=== PATIENT | female | born 1965 | race Caucasian/White ===

== ENCOUNTER 2022-03-26 18:38 | Inpatient (IN) | payer OTHER ==
--- OUTSIDE RECORDS SUMMARY | 2022-03-26 18:44 | XMS REPORT | Continuity of Care Document ---
:1965 Author Organization [facility] Address [address] [place] [address] [address] [place] [address] Care Team Providers Name Role Phone TANIA MA Primary Care Physician Unavailable Tania Ma Attending Clinician Unavailable DENNIS KYLE Attending Clinician Unavailable Doctor Unassigned, Kulm Attending Clinician Unavailable HUNG GARCIA Attending Clinician Unavailable Hung Mcclain Attending Clinician Kayce Chakraborty LVN Attending Clinician Boris Armstrong DO Attending Clinician Daniel Farias MD Attending Clinician DANIEL FARIAS Attending Clinician Unavailable Mindy Slater NP Attending Clinician Kane Alberto Attending Clinician GILLES ZAVALA Attending Clinician Unavailable HUNG GARCIA Admitting Clinician Unavailable Daniel Farias MD Admitting Clinician DANIEL FARIAS Admitting Clinician Unavailable GILLES ZAVALA Admitting Clinician Unavailable Payers Payer Name Policy Type Policy Number Effective Date Expiration Date S angel AMERIGROUP AKIN [id number] 2022 PLUS 00:00:00 AMERIGROUP [id number] Common (Medicaid) [facility] AMERIGROUP [id number] Common (Medicaid) [facility] Problems Condition Condition Condition Status Onset Resolution Last Treating Co mments Source Name Details Category Date Date Treatment Clinician Date Essential Essential Disease Active 2020-04 Uni vers hypertensi hypertensi 2- it y of on on 00:00: [place] 00 Medical Branch Tachycardi Tachycardi Disease Active 2020-04 U nivers a a 2- ity of 00:00: [place] 00 Medical Branch Elevated Elevated Disease Active 2020-04 Unive rs brain brain 2 ity of natri[place] c peptide c peptide 00 Medi mateo (BNP) (BNP) Branch level level Multifocal Multifocal Disease Active 2020-04 U nivers pneumonia pneumonia 2 ity of 00:00: [place] 00 [facility] Branch Respirator Respirator Disease Active 2019-04 U nivers y failure y failure 2-13 ity of with with 00:00: [place] hypoxia hypoxia 00 [facility] Branch Acute Acute Disease Active 2017-04 Univers respirator respirator 2 [place] failure [place] 00 [facility] [place] hypoxia Branch and and hypercapni hypercapni a a [id number] Mixed Problem Common hyperlipid Spirit emia [facility] [id number] COPD with Problem Co mmon [id number] asthma [facility] Hypertensi HTN Problem Commo n on (hypertens Spirit ion) - [facility] [id number] Asymptomat Problem Co mmon ic Spirit hypertensi - [facility] ve urgency [facility] [id number] Chronic Problem Common obstructiv Spirit e - [facility] pulmonary [facility] unspecifie Medica [facility] [place] [id number] COPD with Problem Com mon exacerbati Spirit on [facility] [id number] Current Problem Common moderate Spirit episode of - [facility] major [facility] Medical [facility] prior episode [id number] Dependence Problem C ommon 9103 on Spirit continuous - [facility] supplement [facility] [id number] Tobacco Problem Commo n use [facility] disorder [facility] Allergies, Adverse Reactions, Alerts Allergy Allergy Status Severity Reaction(s) Onset Inactive Treating Comm ents Source Name Type Date Date Clinician Morphine Propensi Active Nausea 2017-04 Univer s ty to and/or 05-20 ity of adverse Vomiting 00:00: [place] reaction 00 Medical s Branch MORPHINE DRUG Active Low N/V 2017-04 Univers INGREDI 05-20 ity of 00:00: [place] [id number] Medical Branch Social History Social Habit Start Date Stop Date Quantity Comments Source History of Common Spirit - Tobacco Use [facility] Sex Assigned At Common Sp catrachito - [facility] Exposure to Not sure University of SARS-CoV-2 [facility] (event) [place] Alcohol intake 2021-03-15 2021-03-15 Current drinker Unive rsity of 00:00:00 00:00:00 of alcohol [facility] (finding) [place] Tobacco use and 2020-03-22 2020-03-22 Smokeless tobacco Un iversity of exposure 00:00:00 00:00:00 non-user [facility] Smoking Status Start Date Stop Date Source Former Smoker 2022-03-02 00:00:00 2022-03-02 00:00:00 Common S pirit - [facility] Ce nter Smokes tobacco daily 2020-03-22 00:00:00 Univers ity of [facility] Medications Ordered Filled Start Stop Current Ordering Indication Dosage Frequency Signature Comments Components Source Medication Medication Date Date Medication? Clinician (SIG) Name Name predniSONE predniSONE 2021-04- No 2{table QD predniSONE 20 MG 20 MG 1-10 11-15 t} 20 MG 00:00: 00:00 00 :00 predniSONE predniSONE 2021-04- No 2{table QD predniSONE 20 MG 20 MG -10 11-15 t} 20 MG 00:00: 00:00 00 :00 Rosuvastati Rosuvastati 2021-04 No 1{table QD Rosuvastat n Calcium 5 n Calcium 5 0-24 t} in Calcium MG MG 00:00: 5 MG 00 Rosuvastati Rosuvastati 2021-04 No 1{table QD Rosuvastat n Calcium 5 n Calcium 5 0-24 t} in Calcium MG MG 00:00: 5 MG 00 Rosuvastati Rosuvastati 2021-04 No 1{table QD Rosuvastat n Calcium 5 n Calcium 5 0-24 t} in Calcium MG MG 00:00: 5 MG 00 Rosuvastati Rosuvastati 2021-04 No 1{table QD Rosuvastat n Calcium 5 n Calcium 5 0-24 t} in Calcium MG MG 00:00: 5 MG 00 Breo Breo 2021-2021- No 1{puff} QD Breo Ellipta Ellipta 8-23 12-21 Ellipta 200-25 200-25 00:00: 00:00 200-25 MCG/INH MCG/INH 00 :00 MCG/INH Breo Breo 2021-2021- No 1{puff} QD Breo Ellipta Ellipta 8-23 12-21 Ellipta 200-25 200-25 00:00: 00:00 200-25 MCG/INH MCG/INH 00 :00 MCG/INH Breo Breo 2021- No 1{puff} QD Breo Ellipta Ellipta 8-23 12-21 Ellipta 200-25 200-25 00:00: 00:00 200-25 MCG/INH MCG/INH 00 :00 MCG/INH Breo Breo 2021- No 1{puff} QD Breo Ellipta Ellipta 8-23 12-21 Ellipta 200-25 200-25 00:00: 00:00 200-25 MCG/INH MCG/INH 00 :00 MCG/INH Breo Breo 2021-2021- No 1{puff} QD Breo Ellipta Ellipta 8-23 12-21 Ellipta 200-25 200-25 00:00: 00:00 200-25 MCG/INH MCG/INH 00 :00 MCG/INH Breo Breo 2021-2021- No 1{puff} QD Breo Ellipta Ellipta 8-23 12-21 Ellipta 200-25 200-25 00:00: 00:00 200-25 MCG/INH MCG/INH 00 :00 MCG/INH Atorvastati Atorvastati No 1{table QD Atorvastat n Calcium n Calcium 8-22 t} in Calcium 20 MG 20 MG 00:00: 20 MG 00 Budesonide Budesonide No 2{ml} QD Budesonide 0.5 MG/2ML 0.5 MG/2ML 8-22 0.5 MG/2ML 00:00: 00 Budesonide Budesonide 2022-0 No 2{ml} QD Budesonide 0.5 MG/2ML 0.5 MG/2ML 8-22 0.5 MG/2ML 00:00: 00 Atorvastati Atorvastati 2021-0 No 1{table QD Atorvastat n Calcium n Calcium 8-22 t} in Calcium 20 MG 20 MG 00:00: 20 MG 00 Budesonide Budesonide 2021-0 No 2{ml} QD Budesonide 0.5 MG/2ML 0.5 MG/2ML 8-22 0.5 MG/2ML 00:00: 00 Atorvastati Atorvastati 2021-0 No 1{table QD Atorvastat n Calcium n Calcium 8-22 t} in Calcium 20 MG 20 MG 00:00: 20 MG 00 Budesonide Budesonide 0 No 2{ml} QD Budesonide 0.5 MG/2ML 0.5 MG/2ML 8-22 0.5 MG/2ML 00:00: 00 Atorvastati Atorvastati 2021-0 No 1{table QD Atorvastat n Calcium n Calcium 8-22 t} in Calcium 20 MG 20 MG 00:00: 20 MG 00 Budesonide Budesonide 0 No 2{ml} QD Budesonide 0.5 MG/2ML 0.5 MG/2ML 8-22 0.5 MG/2ML 00:00: 00 Atorvastati Atorvastati 2021-0 No 1{table QD Atorvastat n Calcium n Calcium 8-22 t} in Calcium 20 MG 20 MG 00:00: 20 MG 00 Atorvastati Atorvastati 2021-0 No 1{table QD Atorvastat n Calcium n Calcium 8-22 t} in Calcium 20 MG 20 MG 00:00: 20 MG 00 Budesonide Budesonide 2021-0 No 2{ml} QD Budesonide 0.5 MG/2ML 0.5 MG/2ML 8-22 0.5 MG/2ML 00:00: 00 Atorvastati Atorvastati 2021-0 No 1{table QD Atorvastat n Calcium n Calcium 8-22 t} in Calcium 20 MG 20 MG 00:00: 20 MG 00 Budesonide Budesonide 2021-0 No 2{ml} QD Budesonide 0.5 MG/2ML 0.5 MG/2ML 8-22 0.5 MG/2ML 00:00: 00 predniSONE predniSONE 2021- No QD predniSONE 20 MG 20 MG 4-15 04-20 20 MG 00:00: 00:00 00 :00 dilTIAZem dilTIAZem No QD dilTIAZem HCl 120 MG HCl 120 MG 1-05 HCl 120 MG 00:00: 00 dilTIAZem dilTIAZem No QD dilTIAZem HCl 120 MG HCl 120 MG 1-05 HCl 120 MG 00:00: 00 diltiazem 2020-04 No [id number] 120mg Take 1 Univers XR 120 mg 05-17 capsule by ity of 24 hr 00:00: 05:59 mouth [place] capsule 00 :00 daily for Medical 30 days. Branch nicotine 2020-04 No [id number] 1{patch Apply 1 Univers mg/24 hr 05-17 } Patch to ity of patch 00:00: 05:59 area(s) [place] 00 :00 every 24 Medical (twenty-fo Branch ur) hours for 30 days. diltiazem 2020-04 No [id number] 120mg Take 1 Univers XR 120 mg 05-17 capsule by ity of 24 hr 00:00: 05:59 mouth [place] capsule 00 :00 daily for Medical 30 days. Branch nicotine 2020-04 No [id number] 1{patch Apply 1 Univers mg/24 hr 05-17 } Patch to ity of patch 00:00: 05:59 area(s) [place] 00 :00 every 24 Medical (twenty-fo Branch ur) hours for 30 days. predniSONE 2020-04 No [id number] 40mg Take 2 Univers 20 mg 05-17-12 tablets by ity of tablet 00:00: 05:59 mouth [place] 00 :00 daily for Medical 5 days. Branch predniSONE 2020-04- No [id number] 40mg Take 2 Univers 20 mg 05-17-12 tablets by ity of tablet 00:00: 05:59 mouth [place] 00 :00 daily for Medical 5 days. Branch SERTraline 2021-1 Yes 100mg Take 100 Un brian (ZOLOFT) 2-05 mg by ity of 100 mg 13:18: mouth [place] tablet 59 daily. Medical Branch SERTraline 2020-04 Yes 100mg Take 100 Un brian (ZOLOFT) 2-05 mg by ity of 100 mg 13:18: mouth [place] tablet 59 daily. Medical Branch SERTraline 2020-04 Yes 100mg Take 100 Un brian (ZOLOFT) 2-05 mg by ity of 100 mg 13:18: mouth [place] tablet 59 daily. Medical Branch SERTraline 2020-04 Yes 100mg Take 100 Un brian (ZOLOFT) 2-05 mg by ity of 100 mg 13:18: mouth [place] tablet 59 daily. Medical Branch amLODIPine 2020-04- No 5mg Take 5 mg U nivers 5 mg tablet 05-16-05 by mouth ity of 11:57: 00:00 daily. [place] 35 :00 Medical Branch budesonide 2020-04 Yes [id number] .5mg Inhale 2 Univers 0.5 mg/2 mL 2-05 mL 2 (two) it y of nebulizer 00:00: times [place] solution 00 daily. Medical Branch budesonide 2020-04 Yes [id number] .5mg Inhale 2 Univers 0.5 mg/2 mL 2-05 mL 2 (two) it y of nebulizer 00:00: times [place] solution 00 daily. Medical Branch budesonide 2020-04 Yes [id number] .5mg Inhale 2 Univers 0.5 mg/2 mL 2-05 mL 2 (two) it y of nebulizer 00:00: times [place] solution 00 daily. Medical Branch budesonide 2020-04 Yes [id number] .5mg Inhale 2 Univers 0.5 mg/2 mL 2-05 mL 2 (two) it y of nebulizer 00:00: times [place] solution 00 daily. Medical Branch cholecalcif 2020-04- No [id number] 2000U Take 2 Univers carolyn, 2-05 12-11 tablets by ity of vitamin D3, 00:00: 05:59 [place] 2 [place] 25 mcg 00 :00 (two) Medical (1,000 times Branch unit) daily for tablet 5 days. levoFLOXaci 2020-04- No [id number] 750mg Take 1 Univers n 750 mg 2-05 12-11 tablet by ity o f tablet 00:00: 05:59 mouth [place] 00 :00 every 24 Medical (twenty-fo [place] ur) hours for 5 days. cholecalcif 2020-04 No [id number] 2000U Take 2 Univers carolyn, 05-16 tablets by ity of vitamin D3, 00:00: 05:59 mouth 2 [place] 25 mcg 00 :00 (two) Medical (1,000 times Branch unit) daily for tablet 5 days. levoFLOXaci 2020-04- No [id number] 750mg Take 1 Univers n 750 mg 05-16 tablet by ity o f tablet 00:00: 05:59 mouth [place] 00 :00 every 24 Medical (twenty-fo [place] ur) hours for 5 days. diltiazem 2020-04 Yes 120mg 120 mg, Univ ers XR 2-04 Oral, ity of (DILT-XR) 15:15: DAILY, [place] capsule 120 00 First dose Me dical mg on [facility] 03/14/21 at 0915, Until Discontinu ed, Routine KCL 2020-04- No 40meq 40 mEq, Univers (KLOR-CON 05-15 Oral, BID, ity of M20) tablet 14:15: 14:18 First dose [place] 40 mEq 00 :07 on [facility] 03/14/21 at Branch 0815, Until Discontinu ed, Routine cholecalcif 2020-04 Yes 1999U 2,000 Univ ers carolyn 2-04 Units, ity of (vitamin 02:00: Oral, BID, [place] D3) tablet 00 First dose Med ical 2,000 Units (after Branch last modificati on) on Tue03/13/21 at 2000, Until Discontinu ed, Routine predniSONE 2020-04 Yes 40mg 40 mg, Unive rs (DELTASONE) 2- Oral, ity of tablet 40 18:15: DAILY, [place] mg 00 First dose Medical (after Branch last modificati on) on [place] 03/12/21 at 1215, Until Discontinu ed, Routine cholecalcif 2020-04 No 2000U 2,000 Uni vers carolyn 2 12-03 Units, ity of (vitamin 18:15: 16:49 Oral, [place] D3) tablet 00 :10 DAILY, Medical 2,000 Units First dose Br anch on [place] 03/12/21 at 1215, Until Discontinu ed, Routine SERTraline 2020-04 Yes 100mg 100 mg, Uni vers (ZOLOFT) 05-13 Oral, ity of tablet 100 15:00: DAILY, [place] mg 00 First dose Medical on [place] Branch 03/12/21 at 0900, Until Discontinu ed, Routine enoxaparin 2020-04 Yes 30mg 30 mg, Unive rs (LOVENOX) 05-13 Subcutaneo ity of injection 15:00: [place], DAILY, [place] 30 mg 00 First dose Medical on [place] Branch 03/12/21 at 0900, Until Discontinu ed, Routine nicotine 2020-04 Yes 1{patch 1 Patch, Un brian (NICODERM) 05-13 } Topical, ity o f 21 mg/24 hr 07:30: Administer [place] patch 1 00 over 24 Medical Patch Hours, Branch Q24H, First dose on [place] 03/12/21 at 0130, Until Discontinu ed, Routine levoFLOXaci 2020-04 No 750mg 750 mg, IV Univers n in D5W 05-13 Piggyback, ity of (LEVAQUIN) 07:30: 07:29 Q24H ABX, [place] 750 mg/150 00 :00 10 doses, Medi mateo mL First dose Branch Piggyback on [place] 750 mg 03/12/21 at 0130, Last dose on 03/21/21 at 0130, Administer over 90 Minutes, 150 mL
Reas on for Anti-Infec tive: Empiric Therapy for Suspected Infection< br>Empiric Therapy Site: Respirator y
Durat ion of therapy: 7 days methylpredn 2020-04 No 125mg 125 mg, U nivers isolone sod 05-13 Slow IV ity of succ 07:30: 08:15 Push, ONCE [place] (SOLU-MEDRO 00 :00 NOW, 1 Medica l L) dose, On Branch injection [place] 125 mg 03/12/21 at 0130, Routine ipratropium 2020-04 Yes 3mL 3 mL, Unive rs -albuteroL 2-02 Inhalation ity of (DUONEB) 06:30: , Q4H, [place] 0.5 mg-3 00 First dose Medic al mg(2.5 mg (after Branch base)/3 mL last nebulizer modificati solution 3 on) on [place] mL 03/12/21 at 0030, Until Discontinu ed, Routine budesonide 2020-04 Yes .5mg 0.5 mg, [facility] ers (PULMICORT 2- Inhalation ity of RESPULE) 06:30: , BID, [place] nebulizer 00 First dose Medi mateo solution on [place] Branch 0.5 mg 03/12/21 at 0030, Until Discontinu ed, Routine
membership manager approving Restricted medication : MEGADC acetaminoph 2020-04 Yes 650mg 650 mg, Un brian en 05-12 Oral, ity of (TYLENOL) 22:35: Q6HPRN, [place] tablet 650 10 Starting Medic al mg on Tue Branch 03/11/21 at 1635, Until Discontinu ed, Routine, Pain (scale 1-3) ipratropium 2020-04 No 3mL 3 mL, [facility] ers -albuteroL 05-12 Inhalation it y of (DUONEB) 18:00: 06:20 , QID, [place] 0.5 mg-3 00 :35 First dose Medic al mg(2.5 mg on Tue Branch base)/3 mL 03/11/21 at nebulizer 1200, solution 3 Until mL Discontinu ed, Routine methylpredn 2020-04- No 125mg 125 mg, U nivers isolone sod 05-12 Intravenou i ty of succ 18:00: 22:43 s, Q6H, [place] (SOLU-MEDRO 00 :52 First dose Me dical L) on Tue Branch injection 03/11/21 at 125 mg 1200, Until Discontinu ed, Routine NaCl 0.9% 2020-04 No 1000mL at 999 Uni vers (NS) bolus 05-12 mL/hr, ity of infusion 16:45: 17:45 1,000 mL, [place] 1,000 mL 00 :00 IV Medical Piggyback, Branch ONCE, 1 dose, On Tue03/11/21 at 1045, STAT azithromyci 2020-04- No 500mg 500 mg, IV Univers n 05-12 Piggyback, ity of (ZITHROMAX) 16:30: 06:17 Q24H ABX, [place] 500 mg in 00 :58 First dose Medi mateo NaCl 0.9% on Wed Branch (NS) 250 mL 03/11/21 at VIAL-MATE 1030, IV Until piggyback Discontinu ed, Administer over 60 Minutes, 250 mL
Reas on for Anti-Infec tive: Empiric Therapy for Suspected Infection< br>Empiric Therapy Site: Respirator y
Durat ion of therapy: 72 hours cefTRIAXone 2020-04- No 1000mg 1,000 mg, Univers (ROCEPHIN) 05-12 IV ity of 1,000 mg in 16:30: 16:22 Piggyback, [place] NaCl 0.9% 00 :00 ONCE, 1 Medical (NS) 50 mL dose, On Branc h MINI-BAG 03/11/21 at 1030, Administer over 30 Minutes, 50 mL
Reas on for Anti-Infec tive: Empiric Therapy for Suspected Infection< br>Empiric Therapy Site: Respirator y
Durat ion of therapy: 72 hours iopamidol 2020-04- No [id number] 80mL 80 mL, Univers (ISOVUE 05-12 Intravenou ity o f 370-500 mL) 16:15: 15:02 s, ONCE, 1 [place] injection 00 :00 dose, On Medica l 80 mL Wed Branch 03/11/21 at 1015, Routine amLODIPine 2019-04 Yes 5mg Take 5 mg Un brian 5 mg tablet 2-15 by mouth ity of 00:29: daily. [address] SERTraline 2019-04 Yes 100mg Take 100 Un brian (ZOLOFT) 2-15 mg by ity of 100 mg 00:29: mouth [place] tablet 54 daily. Medical Branch amLODIPine 2019-04 Yes 5mg Take 5 mg Un brian 5 mg tablet 2-15 by mouth ity of 00:29: daily. [address] SERTraline 2019-04 Yes 100mg Take 100 Un brian (ZOLOFT) 2-15 mg by ity of 100 mg 00:29: mouth [place] tablet 54 daily. Medical Branch ipratropium 2019-04 Yes 3mL Inhale 3 Univers -albuteroL 2-14 mL 4 ity of 0.5 mg-3 00:00: (four) [place] mg(2.5 mg 00 times Medical base)/3 mL daily. Branch nebulizer solution albuterol 2019-04 Yes [id number] .63mg Use 3 mL Univers 0.63 mg/3 2-14 as ity of mL 00:00: directed [place] nebulizer 00 every 4 Medical solution (four) Branch hours as needed for Wheezing or Shortness of Breath. ipratropium 2019-04 Yes 3mL Inhale 3 Univers -albuteroL 2-14 mL 4 ity of 0.5 mg-3 00:00: (four) [place] mg(2.5 mg 00 times Medical base)/3 mL daily. Branch nebulizer solution albuterol 2019-04 Yes [id number] .63mg Use 3 mL Univers 0.63 mg/3 2-14 as ity of mL 00:00: directed [place] nebulizer 00 every 4 Medical solution (four) Branch hours as needed for Wheezing or Shortness of Breath. ipratropium 2019-04 Yes 3mL Inhale 3 Univers -albuteroL 2-14 mL 4 ity of 0.5 mg-3 00:00: (four) [place] mg(2.5 mg 00 times Medical base)/3 mL daily. Branch nebulizer solution albuterol 2019-04 Yes [id number] .63mg Use 3 mL Univers 0.63 mg/3 2-14 as ity of mL 00:00: directed [place] nebulizer 00 every 4 Medical solution (four) Branch hours as needed for Wheezing or Shortness of Breath. ipratropium 2019-04 Yes [id number] 3mL Inhale 3 Univers -albuteroL 2-14 mL 4 ity of 0.5 mg-3 00:00: (four) [place] mg(2.5 mg 00 times Medical base)/3 mL daily. Branch nebulizer solution albuterol 2019-04 Yes [id number] .63mg Use 3 mL Univers 0.63 mg/3 2-14 as ity of mL 00:00: directed [place] nebulizer 00 every 4 Medical solution (four) Branch hours as needed for Wheezing or Shortness of Breath. ipratropium 2019-04 Yes 3mL Inhale 3 Univers -albuteroL 2-14 mL 4 ity of 0.5 mg-3 00:00: (four) [place] mg(2.5 mg 00 times Medical base)/3 mL daily. Branch nebulizer solution albuterol 2019-04 Yes .63mg Use 3 mL Univers 0.63 mg/3 2-14 as ity of mL 00:00: directed [place] nebulizer 00 every 4 Medical solution (four) Branch hours as needed for Wheezing or Shortness of Breath. ipratropium 2019-04 Yes 3mL Inhale 3 Univers -albuteroL 2-14 mL 4 ity of 0.5 mg-3 00:00: (four) [place] mg(2.5 mg 00 times Medical base)/3 mL daily. Branch nebulizer solution albuterol 2019-04 Yes .63mg Use 3 mL Univers 0.63 mg/3 2-14 as ity of mL 00:00: directed [place] nebulizer 00 every 4 Medical solution (four) Branch hours as needed for Wheezing or Shortness of Breath. albuterol 2019-04 Yes 2{puff} Inhale 2 Univers (PROVENTIL 2-13 Puffs ity of HFA) 90 00:00: every 4 [place] mcg/actuati 00 (four) Medica l on inhaler hours as Branc h needed for Wheezing, Shortness of Breath, Bronchospa sm or Chest tightness. budesonide- 2019-04 Yes 2{puff} Inhale 2 Univers formoteroL 2-13 Puffs 2 ity of 160-4.5 00:00: (two) [place] mcg/actuati 00 times Medical on inhaler daily. Branch albuterol 2019-04 Yes 2{puff} Inhale 2 Univers (PROVENTIL 2-13 Puffs ity of HFA) 90 00:00: every 4 [place] mcg/actuati 00 (four) Medica l on inhaler hours as Branc h needed for Wheezing, Shortness of Breath, Bronchospa sm or Chest tightness. budesonide- 2019-04 Yes 2{puff} Inhale 2 Univers formoteroL 2-13 Puffs 2 ity of 160-4.5 00:00: (two) [place] mcg/actuati 00 times Medical on inhaler daily. [place] albuterol 2019-04 Yes 2{puff} Inhale 2 Univers (PROVENTIL 2-13 Puffs ity of HFA) 90 00:00: every 4 [place] mcg/actuati 00 (four) Medica l on inhaler hours as Branc h needed for Wheezing, Shortness of Breath, Bronchospa sm or Chest tightness. albuterol 2019-04 Yes 2{puff} Inhale 2 Univers (PROVENTIL 2-13 Puffs ity of HFA) 90 00:00: every 4 [place] mcg/actuati 00 (four) Medica l on inhaler hours as Branc h needed for Wheezing, Shortness of Breath, Bronchospa sm or Chest tightness. budesonide2019-04 Yes 2{puff} Inhale 2 Univers formoteroL 2-13 Puffs 2 ity of 160-4.5 00:00: (two) [place] mcg/actuati 00 times Medical on inhaler daily. [place] budesonide2019-04 Yes 2{puff} Inhale 2 Univers formoteroL 2-13 Puffs 2 ity of 160-4.5 00:00: (two) [place] mcg/actuati 00 times Medical on inhaler daily. [place] azithromyci 2019-04 Yes 250mg Take 1 Univers n 250 mg 2-13 tablet by ity of tablet 00:00: mouth [place] 00 daily. Medical Take 500 Branch mg day 1, then 250 mg days 2 to 5. albuterol 2019-04 Yes 2{puff} Inhale 2 Univers (PROVENTIL 2-13 Puffs ity of HFA) 90 00:00: every 4 [place] mcg/actuati 00 (four) Medica l on inhaler hours as Branc h needed for Wheezing, Shortness of Breath, Bronchospa sm or Chest tightness. budesonide2019-04 Yes 2{puff} Inhale 2 Univers formoteroL 2-13 Puffs 2 ity of 160-4.5 00:00: (two) [place] mcg/actuati 00 times Medical on inhaler daily. [place] albuterol 2019-04 Yes 2{puff} Inhale 2 Univers (PROVENTIL 2-13 Puffs ity of HFA) 90 00:00: every 4 [place] mcg/actuati 00 (four) Medica l on inhaler hours as Branc h needed for Wheezing, Shortness of Breath, Bronchospa sm or Chest tightness. budesonide- 2019-04 Yes [id number] 2{puff} Inhale 2 Univers formoteroL 2-13 Puffs 2 ity of 160-4.5 00:00: (two) [place] mcg/actuati 00 times Medical on inhaler daily. Branch azithromyci 2019-04 Yes [id number] 250mg Take 1 Univers n 250 mg 2-13 tablet by ity of tablet 00:00: mouth [place] 00 daily. Medical Take 500 Branch mg day 1, then 250 mg days 2 to 5. azithromyci 2019-04- No [id number] 250mg Take 1 Univers n 250 mg 2-13 12-05 tablet by ity o f tablet 00:00: 00:00 mouth [place] 00 :00 daily. Medical Take 500 Branch mg day 1, then 250 mg days 2 to 5. HydrALAZINE HydrALAZINE Yes Tania 1 tablet Common HCl HCl 7-27 Ma with food Spirit 00:00: - [facility] 00 [facility] hydrALAZINE hydrALAZINE 2019-0 No 1{table BID hydrALAZIN HCl 25 MG HCl 25 MG 7-27 t_with_ E HCl 25 00:00: food} MG 00 hydrALAZINE hydrALAZINE 2019-0 No 1{table BID hydrALAZIN HCl 25 MG HCl 25 MG 7-27 t_with_ E HCl 25 00:00: food} MG 00 hydrALAZINE hydrALAZINE 2019-0 No 1{table BID hydrALAZIN HCl 25 MG HCl 25 MG 7-27 t_with_ E HCl 25 00:00: food} MG 00 hydrALAZINE hydrALAZINE 2020-0 No 1{table BID hydrALAZIN HCl 25 MG HCl 25 MG 7-27 t_with_ E HCl 25 00:00: food} MG 00 hydrALAZINE hydrALAZINE 2020-0 No 1{table BID hydrALAZIN HCl 25 MG HCl 25 MG 7-27 t_with_ E HCl 25 00:00: food} MG 00 hydrALAZINE hydrALAZINE 2020-0 No 1{table BID hydrALAZIN HCl 25 MG HCl 25 MG 7-27 t_with_ E HCl 25 00:00: food} MG 00 hydrALAZINE hydrALAZINE 2020-0 No 1{table BID hydrALAZIN HCl 25 MG HCl 25 MG 7-27 t_with_ E HCl 25 00:00: food} MG 00 hydrALAZINE hydrALAZINE 2020-0 No 1{table BID hydrALAZIN HCl 25 MG HCl 25 MG 7-27 t_with_ E HCl 25 00:00: food} MG 00 hydrALAZINE hydrALAZINE 2020-0 No 1{table BID hydrALAZIN HCl 25 MG HCl 25 MG 7-27 t_with_ E HCl 25 00:00: food} MG 00 hydrALAZINE hydrALAZINE 2020-0 No 1{table BID hydrALAZIN HCl 25 MG HCl 25 MG 7-27 t_with_ E HCl 25 00:00: food} MG 00 hydrALAZINE hydrALAZINE 2020-0 No 1{table BID hydrALAZIN HCl 50 MG HCl 50 MG 7-27 t_with_ E HCl 50 00:00: food} MG 00 hydrALAZINE hydrALAZINE 2020-0 No 1{table BID hydrALAZIN HCl 50 MG HCl 50 MG 7-27 t_with_ E HCl 50 00:00: food} MG 00 hydrALAZINE hydrALAZINE 2020-0 No 1{table BID hydrALAZIN HCl 50 MG HCl 50 MG 7-27 t_with_ E HCl 50 00:00: food} MG 00 hydrALAZINE hydrALAZINE 2020-0 No 1{table BID hydrALAZIN HCl 50 MG HCl 50 MG 7-27 t_with_ E HCl 50 00:00: food} MG 00 hydrALAZINE hydrALAZINE 2020-0 No 1{table BID hydrALAZIN HCl 50 MG HCl 50 MG 7-27 t_with_ E HCl 50 00:00: food} MG 00 hydrALAZINE hydrALAZINE 2020-0 No 1{table BID hydrALAZIN HCl 50 MG HCl 50 MG 7-27 t_with_ E HCl 50 00:00: food} MG 00 hydrALAZINE hydrALAZINE 2020-0 No 1{table BID hydrALAZIN HCl 50 MG HCl 50 MG 7-27 t_with_ E HCl 50 00:00: food} MG 00 hydrALAZINE hydrALAZINE 2019-0 No 1{table BID hydrALAZIN HCl 25 MG HCl 25 MG 7-27 t_with_ E HCl 25 00:00: food} MG 00 hydrALAZINE hydrALAZINE 2019-0 No 1{table BID hydrALAZIN HCl 25 MG HCl 25 MG 7-27 t_with_ E HCl 25 00:00: food} MG 00 hydrALAZINE hydrALAZINE 2019- No 1{table BID hydrALAZIN HCl 25 MG HCl 25 MG 7-27 t_with_ E HCl 25 00:00: food} MG 00 Hydrochloro Hydrochloro 2019- Yes Tania 1 capsule Common thiazide thiazide 7-21 Ma in the [facility] it 00:00: morning - [facility] [place] Fluticasone Fluticasone No 1{puff} BID Fluticason -Salmeterol -Salmeterol e-Salmeter 250-50 250-50 ol 250-50 MCG/DOSE MCG/DOSE MCG/DOSE hydroCHLORO hydroCHLORO No 1{capsu QD hydroCHLOR thiazide thiazide le_in_t Othiazide 12.5 MG 12.5 MG he_morn 12.5 MG ing} amLODIPine amLODIPine No 1{table QD amLODIPine Besylate 10 Besylate 10 t} Besylate MG MG 10 MG Albuterol Albuterol No 3{ml_as Albuterol Sulfate Sulfate _needed Sulfate 0.63 MG/3ML 0.63 MG/3ML } 0.63 MG/3ML Albuterol Albuterol No 1{puff_ 6xD Albuterol Sulfate HFA Sulfate HFA as_need Sulfate 108 (90 108 (90 ed} HFA 108 Base) Base) (90 Base) MCG/ACT MCG/ACT MCG/ACT Zoloft 100 Zoloft 100 No 1{table QD Zoloft 100 MG MG t} MG ProAir HFA ProAir HFA No 2{puffs QID ProAir HFA 108 (90 108 (90 _as_nee 108 (90 Base) Base) ded} Base) MCG/ACT MCG/ACT MCG/ACT amLODIPine amLODIPine No 1{table QD amLODIPine Besylate 10 Besylate 10 t} Besylate MG MG 10 MG hydroCHLORO hydroCHLORO No 1{capsu QD hydroCHLOR thiazide thiazide le_in_t Othiazide 12.5 MG 12.5 MG he_morn 12.5 MG ing} amLODIPine amLODIPine No 1{table QD amLODIPine Besylate 10 Besylate 10 t} Besylate MG MG 10 MG Albuterol Albuterol No 3{ml_as Albuterol Sulfate Sulfate _needed Sulfate 0.63 MG/3ML 0.63 MG/3ML } 0.63 MG/3ML Albuterol Albuterol No 1{puff_ 6xD Albuterol Sulfate HFA Sulfate HFA as_need Sulfate 108 (90 108 (90 ed} HFA 108 Base) Base) (90 Base) MCG/ACT MCG/ACT MCG/ACT Zoloft 100 Zoloft 100 No 1{table QD Zoloft 100 MG MG t} MG ProAir HFA ProAir HFA No 2{puffs QID ProAir HFA 108 (90 108 (90 _as_nee 108 (90 Base) Base) ded} Base) MCG/ACT MCG/ACT MCG/ACT amLODIPine amLODIPine No 1{table QD amLODIPine Besylate 10 Besylate 10 t} Besylate MG MG 10 MG hydroCHLORO hydroCHLORO No 1{capsu QD hydroCHLOR thiazide thiazide le_in_t Othiazide 12.5 MG 12.5 MG he_morn 12.5 MG ing} amLODIPine amLODIPine No 1{table QD amLODIPine Besylate 10 Besylate 10 t} Besylate MG MG 10 MG Zoloft 100 Zoloft 100 No 1{table QD Zoloft 100 MG MG t} MG amLODIPine amLODIPine No 1{table QD amLODIPine Besylate 10 Besylate 10 t} Besylate MG MG 10 MG Albuterol Albuterol No 3{ml_as Albuterol Sulfate Sulfate _needed Sulfate 0.63 MG/3ML 0.63 MG/3ML } 0.63 MG/3ML Albuterol Albuterol No 1{puff_ 6xD Albuterol Sulfate HFA Sulfate HFA as_need Sulfate 108 (90 108 (90 ed} HFA 108 Base) Base) (90 Base) MCG/ACT MCG/ACT MCG/ACT ProAir HFA ProAir HFA No 2{puffs QID ProAir HFA 108 (90 108 (90 _as_nee 108 (90 Base) Base) ded} Base) MCG/ACT MCG/ACT MCG/ACT hydroCHLORO hydroCHLORO No 1{capsu QD hydroCHLOR thiazide thiazide le_in_t Othiazide 12.5 MG 12.5 MG he_morn 12.5 MG ing} amLODIPine amLODIPine No 1{table QD amLODIPine Besylate 10 Besylate 10 t} Besylate MG MG 10 MG Zoloft 100 Zoloft 100 No 1{table QD Zoloft 100 MG MG t} MG amLODIPine amLODIPine No 1{table QD amLODIPine Besylate 10 Besylate 10 t} Besylate MG MG 10 MG Albuterol Albuterol No 3{ml_as Albuterol Sulfate Sulfate _needed Sulfate 0.63 MG/3ML 0.63 MG/3ML } 0.63 MG/3ML Albuterol Albuterol No 1{puff_ 6xD Albuterol Sulfate HFA Sulfate HFA as_need Sulfate 108 (90 108 (90 ed} HFA 108 Base) Base) (90 Base) MCG/ACT MCG/ACT MCG/ACT ProAir HFA ProAir HFA No 2{puffs QID ProAir HFA 108 (90 108 (90 _as_nee 108 (90 Base) Base) ded} Base) MCG/ACT MCG/ACT MCG/ACT amLODIPine amLODIPine No 1{table QD amLODIPine Besylate 10 Besylate 10 t} Besylate MG MG 10 MG Zoloft 100 Zoloft 100 No 1{table QD Zoloft 100 MG MG t} MG hydroCHLORO hydroCHLORO No 1{capsu QD hydroCHLOR thiazide thiazide le_in_t Othiazide 12.5 MG 12.5 MG he_morn 12.5 MG ing} Symbicort Symbicort No Symbicort 160-4.5 160-4.5 160-4.5 MCG/ACT MCG/ACT MCG/ACT Albuterol Albuterol No 1{puff_ 6xD Albuterol Sulfate HFA Sulfate HFA as_need Sulfate 108 (90 108 (90 ed} HFA 108 Base) Base) (90 Base) MCG/ACT MCG/ACT MCG/ACT ProAir HFA ProAir HFA No 2{puffs QID ProAir HFA 108 (90 108 (90 _as_nee 108 (90 Base) Base) ded} Base) MCG/ACT MCG/ACT MCG/ACT Fluticasone Fluticasone No 1{puff} BID Fluticason -Salmeterol -Salmeterol e-Salmeter 250-50 250-50 ol 250-50 MCG/DOSE MCG/DOSE MCG/DOSE Albuterol Albuterol No 3{ml_as Albuterol Sulfate Sulfate _needed Sulfate 0.63 MG/3ML 0.63 MG/3ML } 0.63 MG/3ML dilTIAZem dilTIAZem No dilTIAZem HCl 120 MG HCl 120 MG HCl 120 MG amLODIPine amLODIPine No 1{table QD amLODIPine Besylate 10 Besylate 10 t} Besylate MG MG 10 MG dilTIAZem dilTIAZem No dilTIAZem HCl 120 MG HCl 120 MG HCl 120 MG Zoloft 100 Zoloft 100 No 1{table QD Zoloft 100 MG MG t} MG amLODIPine amLODIPine No 1{table QD amLODIPine Besylate 10 Besylate 10 t} Besylate MG MG 10 MG Symbicort Symbicort No Symbicort 160-4.5 160-4.5 160-4.5 MCG/ACT MCG/ACT MCG/ACT Albuterol Albuterol No 3{ml_as Albuterol Sulfate Sulfate _needed Sulfate 0.63 MG/3ML 0.63 MG/3ML } 0.63 MG/3ML Fluticasone Fluticasone No 1{puff} BID Fluticason -Salmeterol -Salmeterol e-Salmeter 250-50 250-50 ol 250-50 MCG/DOSE MCG/DOSE MCG/DOSE hydroCHLORO hydroCHLORO No 1{capsu QD hydroCHLOR thiazide thiazide le_in_t Othiazide 12.5 MG 12.5 MG he_morn 12.5 MG ing} amLODIPine amLODIPine No 1{table QD amLODIPine Besylate 10 Besylate 10 t} Besylate MG MG 10 MG Albuterol Albuterol No 1{puff_ 6xD Albuterol Sulfate HFA Sulfate HFA as_need Sulfate 108 (90 108 (90 ed} HFA 108 Base) Base) (90 Base) MCG/ACT MCG/ACT MCG/ACT ProAir HFA ProAir HFA No 2{puffs QID ProAir HFA 108 (90 108 (90 _as_nee 108 (90 Base) Base) ded} Base) MCG/ACT MCG/ACT MCG/ACT dilTIAZem dilTIAZem No dilTIAZem HCl 120 MG HCl 120 MG HCl 120 MG Fluticasone Fluticasone No 1{puff} BID Fluticason -Salmeterol -Salmeterol e-Salmeter 250-50 250-50 ol 250-50 MCG/DOSE MCG/DOSE MCG/DOSE amLODIPine amLODIPine No 1{table QD amLODIPine Besylate 10 Besylate 10 t} Besylate MG MG 10 MG Zoloft 100 Zoloft 100 No 1{table QD Zoloft 100 MG MG t} MG Symbicort Symbicort No Symbicort 160-4.5 160-4.5 160-4.5 MCG/ACT MCG/ACT MCG/ACT ProAir HFA ProAir HFA No 2{puffs QID ProAir HFA 108 (90 108 (90 _as_nee 108 (90 Base) Base) ded} Base) MCG/ACT MCG/ACT MCG/ACT hydroCHLORO hydroCHLORO No 1{capsu QD hydroCHLOR thiazide thiazide le_in_t Othiazide 12.5 MG 12.5 MG he_morn 12.5 MG ing} amLODIPine amLODIPine No 1{table QD amLODIPine Besylate 10 Besylate 10 t} Besylate MG MG 10 MG Albuterol Albuterol No 1{puff_ 6xD Albuterol Sulfate HFA Sulfate HFA as_need Sulfate 108 (90 108 (90 ed} HFA 108 Base) Base) (90 Base) MCG/ACT MCG/ACT MCG/ACT Albuterol Albuterol No Albuterol Sulfate Sulfate Sulfate 0.63 MG/3ML 0.63 MG/3ML 0.63 MG/3ML Symbicort Symbicort No Symbicort 160-4.5 160-4.5 160-4.5 MCG/ACT MCG/ACT MCG/ACT amLODIPine amLODIPine No 1{table QD amLODIPine Besylate 10 Besylate 10 t} Besylate MG MG 10 MG Zoloft 100 Zoloft 100 No 1{table QD Zoloft 100 MG MG t} MG dilTIAZem dilTIAZem No dilTIAZem HCl 120 MG HCl 120 MG HCl 120 MG hydroCHLORO hydroCHLORO No 1{capsu QD hydroCHLOR thiazide thiazide le_in_t Othiazide 12.5 MG 12.5 MG he_morn 12.5 MG ing} guaiFENesin guaiFENesin No 1{table BID guaiFENesi ER 1200 MG ER 1200 MG t_as_ne n ER 1200 eded} MG amLODIPine amLODIPine No 1{table QD amLODIPine Besylate 10 Besylate 10 t} Besylate MG MG 10 MG Albuterol Albuterol No Albuterol Sulfate Sulfate Sulfate 0.63 MG/3ML 0.63 MG/3ML 0.63 MG/3ML ProAir HFA ProAir HFA No 2{puffs QID ProAir HFA 108 (90 108 (90 _as_nee 108 (90 Base) Base) ded} Base) MCG/ACT MCG/ACT MCG/ACT Fluticasone Fluticasone No 1{puff} BID Fluticason -Salmeterol -Salmeterol e-Salmeter 250-50 250-50 ol 250-50 MCG/DOSE MCG/DOSE MCG/DOSE Albuterol Albuterol No 1{puff_ 6xD Albuterol Sulfate HFA Sulfate HFA as_need Sulfate 108 (90 108 (90 ed} HFA 108 Base) Base) (90 Base) MCG/ACT MCG/ACT MCG/ACT Albuterol Albuterol No Albuterol Sulfate Sulfate Sulfate 0.63 MG/3ML 0.63 MG/3ML 0.63 MG/3ML hydroCHLORO hydroCHLORO No 1{capsu QD hydroCHLOR thiazide thiazide le_in_t Othiazide 12.5 MG 12.5 MG he_morn 12.5 MG ing} Albuterol Albuterol No 1{puff_ 6xD Albuterol Sulfate HFA Sulfate HFA as_need Sulfate 108 (90 108 (90 ed} HFA 108 Base) Base) (90 Base) MCG/ACT MCG/ACT MCG/ACT dilTIAZem dilTIAZem No dilTIAZem HCl 120 MG HCl 120 MG HCl 120 MG ProAir HFA ProAir HFA No 2{puffs QID ProAir HFA 108 (90 108 (90 _as_nee 108 (90 Base) Base) ded} Base) MCG/ACT MCG/ACT MCG/ACT Albuterol Albuterol No 3{ml_as Albuterol Sulfate Sulfate _needed Sulfate 0.63 MG/3ML 0.63 MG/3ML } 0.63 MG/3ML Zoloft 100 Zoloft 100 No 1{table QD Zoloft 100 MG MG t} MG guaiFENesin guaiFENesin No 1{table BID guaiFENesi ER 1200 MG ER 1200 MG t_as_ne n ER 1200 eded} MG Symbicort Symbicort No BID Symbicort 160-4.5 160-4.5 160-4.5 MCG/ACT MCG/ACT MCG/ACT amLODIPine amLODIPine No 1{table QD amLODIPine Besylate 10 Besylate 10 t} Besylate MG MG 10 MG amLODIPine amLODIPine No 1{table QD amLODIPine Besylate 10 Besylate 10 t} Besylate MG MG 10 MG Albuterol Albuterol No Albuterol Sulfate Sulfate Sulfate 0.63 MG/3ML 0.63 MG/3ML 0.63 MG/3ML hydroCHLORO hydroCHLORO No 1{capsu QD hydroCHLOR thiazide thiazide le_in_t Othiazide 12.5 MG 12.5 MG he_morn 12.5 MG ing} Albuterol Albuterol No 1{puff_ 6xD Albuterol Sulfate HFA Sulfate HFA as_need Sulfate 108 (90 108 (90 ed} HFA 108 Base) Base) (90 Base) MCG/ACT MCG/ACT MCG/ACT dilTIAZem dilTIAZem No dilTIAZem HCl 120 MG HCl 120 MG HCl 120 MG ProAir HFA ProAir HFA No 2{puffs QID ProAir HFA 108 (90 108 (90 _as_nee 108 (90 Base) Base) ded} Base) MCG/ACT MCG/ACT MCG/ACT Albuterol Albuterol No 3{ml_as Albuterol Sulfate Sulfate _needed Sulfate 0.63 MG/3ML 0.63 MG/3ML } 0.63 MG/3ML Zoloft 100 Zoloft 100 No 1{table QD Zoloft 100 MG MG t} MG guaiFENesin guaiFENesin No 1{table BID guaiFENesi ER 1200 MG ER 1200 MG t_as_ne n ER 1200 eded} MG Symbicort Symbicort No BID Symbicort 160-4.5 160-4.5 160-4.5 MCG/ACT MCG/ACT MCG/ACT amLODIPine amLODIPine No 1{table QD amLODIPine Besylate 10 Besylate 10 t} Besylate MG MG 10 MG amLODIPine amLODIPine No 1{table QD amLODIPine Besylate 10 Besylate 10 t} Besylate MG MG 10 MG Albuterol Albuterol No 3{ml_as Albuterol Sulfate Sulfate _needed Sulfate 0.63 MG/3ML 0.63 MG/3ML } 0.63 MG/3ML Fluticasone Fluticasone No 1{puff} BID Fluticason -Salmeterol -Salmeterol e-Salmeter 250-50 250-50 ol 250-50 MCG/DOSE MCG/DOSE MCG/DOSE ProAir HFA ProAir HFA No 2{puffs QID ProAir HFA 108 (90 108 (90 _as_nee 108 (90 Base) Base) ded} Base) MCG/ACT MCG/ACT MCG/ACT Symbicort Symbicort No BID Symbicort 160-4.5 160-4.5 160-4.5 MCG/ACT MCG/ACT MCG/ACT guaiFENesin guaiFENesin No 1{table BID guaiFENesi ER 1200 MG ER 1200 MG t_as_ne n ER 1200 eded} MG Albuterol Albuterol No Albuterol Sulfate HFA Sulfate HFA Sulfate 108 (90 108 (90 HFA 108 Base) Base) (90 Base) MCG/ACT MCG/ACT MCG/ACT dilTIAZem dilTIAZem No dilTIAZem HCl 120 MG HCl 120 MG HCl 120 MG Albuterol Albuterol No Albuterol Sulfate Sulfate Sulfate 0.63 MG/3ML 0.63 MG/3ML 0.63 MG/3ML Zoloft 100 Zoloft 100 No 1{table QD Zoloft 100 MG MG t} MG amLODIPine amLODIPine No 1{table QD amLODIPine Besylate 10 Besylate 10 t} Besylate MG MG 10 MG dilTIAZem dilTIAZem No dilTIAZem HCl 120 MG HCl 120 MG HCl 120 MG Albuterol Albuterol No 3{ml_as Albuterol Sulfate Sulfate _needed Sulfate 0.63 MG/3ML 0.63 MG/3ML } 0.63 MG/3ML Fluticasone Fluticasone No 1{puff} BID Fluticason -Salmeterol -Salmeterol e-Salmeter 250-50 250-50 ol 250-50 MCG/DOSE MCG/DOSE MCG/DOSE ProAir HFA ProAir HFA No 2{puffs QID ProAir HFA 108 (90 108 (90 _as_nee 108 (90 Base) Base) ded} Base) MCG/ACT MCG/ACT MCG/ACT guaiFENesin guaiFENesin No 1{table BID guaiFENesi ER 1200 MG ER 1200 MG t_as_ne n ER 1200 eded} MG Albuterol Albuterol No Albuterol Sulfate Sulfate Sulfate 0.63 MG/3ML 0.63 MG/3ML 0.63 MG/3ML amLODIPine amLODIPine No 1{table QD amLODIPine Besylate 10 Besylate 10 t} Besylate MG MG 10 MG Symbicort Symbicort No BID Symbicort 160-4.5 160-4.5 160-4.5 MCG/ACT MCG/ACT MCG/ACT Zoloft 100 Zoloft 100 No 1{table QD Zoloft 100 MG MG t} MG Albuterol Albuterol No Albuterol Sulfate HFA Sulfate HFA Sulfate 108 (90 108 (90 HFA 108 Base) Base) (90 Base) MCG/ACT MCG/ACT MCG/ACT dilTIAZem dilTIAZem No dilTIAZem HCl 120 MG HCl 120 MG HCl 120 MG Fluticasone Fluticasone No 1{puff} BID Fluticason -Salmeterol -Salmeterol e-Salmeter 250-50 250-50 ol 250-50 MCG/DOSE MCG/DOSE MCG/DOSE Symbicort Symbicort No BID Symbicort 160-4.5 160-4.5 160-4.5 MCG/ACT MCG/ACT MCG/ACT Albuterol Albuterol No 3{ml_as Albuterol Sulfate Sulfate _needed Sulfate 0.63 MG/3ML 0.63 MG/3ML } 0.63 MG/3ML guaiFENesin guaiFENesin No 1{table BID guaiFENesi ER 1200 MG ER 1200 MG t_as_ne n ER 1200 eded} MG Albuterol Albuterol No Albuterol Sulfate HFA Sulfate HFA Sulfate 108 (90 108 (90 HFA 108 Base) Base) (90 Base) MCG/ACT MCG/ACT MCG/ACT amLODIPine amLODIPine No 1{table QD amLODIPine Besylate 10 Besylate 10 t} Besylate MG MG 10 MG Albuterol Albuterol No Albuterol Sulfate Sulfate Sulfate 0.63 MG/3ML 0.63 MG/3ML 0.63 MG/3ML Zoloft 100 Zoloft 100 No 1{table QD Zoloft 100 MG MG t} MG ProAir HFA ProAir HFA No ProAir HFA 108 (90 108 (90 108 (90 Base) Base) Base) MCG/ACT MCG/ACT MCG/ACT Zoloft 100 Zoloft 100 No 1{table QD Zoloft 100 MG MG t} MG Albuterol Albuterol No Albuterol Sulfate HFA Sulfate HFA Sulfate 108 (90 108 (90 HFA 108 Base) Base) (90 Base) MCG/ACT MCG/ACT MCG/ACT ProAir HFA ProAir HFA No ProAir HFA 108 (90 108 (90 108 (90 Base) Base) Base) MCG/ACT MCG/ACT MCG/ACT Fluticasone Fluticasone No 1{puff} BID Fluticason -Salmeterol -Salmeterol e-Salmeter 250-50 250-50 ol 250-50 MCG/DOSE MCG/DOSE MCG/DOSE amLODIPine amLODIPine No 1{table QD amLODIPine Besylate 10 Besylate 10 t} Besylate MG MG 10 MG guaiFENesin guaiFENesin No 1{table BID guaiFENesi ER 1200 MG ER 1200 MG t_as_ne n ER 1200 eded} MG dilTIAZem dilTIAZem No dilTIAZem HCl 120 MG HCl 120 MG HCl 120 MG Albuterol Albuterol No Albuterol Sulfate Sulfate Sulfate 0.63 MG/3ML 0.63 MG/3ML 0.63 MG/3ML Symbicort Symbicort No BID Symbicort 160-4.5 160-4.5 160-4.5 MCG/ACT MCG/ACT MCG/ACT Rosuvastati Rosuvastati No 1{table QD Rosuvastat n Calcium 5 n Calcium 5 t} in Calcium MG MG 5 MG Zoloft 100 Zoloft 100 No 1{table QD Zoloft 100 MG MG t} MG Albuterol Albuterol No Albuterol Sulfate HFA Sulfate HFA Sulfate 108 (90 108 (90 HFA 108 Base) Base) (90 Base) MCG/ACT MCG/ACT MCG/ACT ProAir HFA ProAir HFA No ProAir HFA 108 (90 108 (90 108 (90 Base) Base) Base) MCG/ACT MCG/ACT MCG/ACT Fluticasone Fluticasone No 1{puff} BID Fluticason -Salmeterol -Salmeterol e-Salmeter 250-50 250-50 ol 250-50 MCG/DOSE MCG/DOSE MCG/DOSE amLODIPine amLODIPine No 1{table QD amLODIPine Besylate 10 Besylate 10 t} Besylate MG MG 10 MG guaiFENesin guaiFENesin No 1{table BID guaiFENesi ER 1200 MG ER 1200 MG t_as_ne n ER 1200 eded} MG dilTIAZem dilTIAZem No dilTIAZem HCl 120 MG HCl 120 MG HCl 120 MG Albuterol Albuterol No Albuterol Sulfate Sulfate Sulfate 0.63 MG/3ML 0.63 MG/3ML 0.63 MG/3ML Symbicort Symbicort No BID Symbicort 160-4.5 160-4.5 160-4.5 MCG/ACT MCG/ACT MCG/ACT Rosuvastati Rosuvastati No 1{table QD Rosuvastat n Calcium 5 n Calcium 5 t} in Calcium MG MG 5 MG ProAir HFA ProAir HFA No ProAir HFA 108 (90 108 (90 108 (90 Base) Base) Base) MCG/ACT MCG/ACT MCG/ACT Rosuvastati Rosuvastati No 1{table QD Rosuvastat n Calcium 5 n Calcium 5 t} in Calcium MG MG 5 MG Fluticasone Fluticasone No 1{puff} BID Fluticason -Salmeterol -Salmeterol e-Salmeter 250-50 250-50 ol 250-50 MCG/DOSE MCG/DOSE MCG/DOSE Symbicort Symbicort No BID Symbicort 160-4.5 160-4.5 160-4.5 MCG/ACT MCG/ACT MCG/ACT amLODIPine amLODIPine No 1{table QD amLODIPine Besylate 10 Besylate 10 t} Besylate MG MG 10 MG Albuterol Albuterol No Albuterol Sulfate Sulfate Sulfate 0.63 MG/3ML 0.63 MG/3ML 0.63 MG/3ML guaiFENesin guaiFENesin No 1{table BID guaiFENesi ER 1200 MG ER 1200 MG t_as_ne n ER 1200 eded} MG dilTIAZem dilTIAZem No dilTIAZem HCl 120 MG HCl 120 MG HCl 120 MG Azithromyci Azithromyci No QD Azithromyc n 250 MG n 250 MG in 250 MG Zoloft 100 Zoloft 100 No 1{table QD Zoloft 100 MG MG t} MG Albuterol Albuterol No Albuterol Sulfate HFA Sulfate HFA Sulfate 108 (90 108 (90 HFA 108 Base) Base) (90 Base) MCG/ACT MCG/ACT MCG/ACT ProAir HFA ProAir HFA No ProAir HFA 108 (90 108 (90 108 (90 Base) Base) Base) MCG/ACT MCG/ACT MCG/ACT Rosuvastati Rosuvastati No 1{table QD Rosuvastat n Calcium 5 n Calcium 5 t} in Calcium MG MG 5 MG Fluticasone Fluticasone No 1{puff} BID Fluticason -Salmeterol -Salmeterol e-Salmeter 250-50 250-50 ol 250-50 MCG/DOSE MCG/DOSE MCG/DOSE Symbicort Symbicort No BID Symbicort 160-4.5 160-4.5 160-4.5 MCG/ACT MCG/ACT MCG/ACT amLODIPine amLODIPine No 1{table QD amLODIPine Besylate 10 Besylate 10 t} Besylate MG MG 10 MG Albuterol Albuterol No Albuterol Sulfate Sulfate Sulfate 0.63 MG/3ML 0.63 MG/3ML 0.63 MG/3ML guaiFENesin guaiFENesin No 1{table BID guaiFENesi ER 1200 MG ER 1200 MG t_as_ne n ER 1200 eded} MG dilTIAZem dilTIAZem No dilTIAZem HCl 120 MG HCl 120 MG HCl 120 MG Azithromyci Azithromyci No QD Azithromyc n 250 MG n 250 MG in 250 MG Zoloft 100 Zoloft 100 No 1{table QD Zoloft 100 MG MG t} MG Albuterol Albuterol No Albuterol Sulfate HFA Sulfate HFA Sulfate 108 (90 108 (90 HFA 108 Base) Base) (90 Base) MCG/ACT MCG/ACT MCG/ACT dilTIAZem dilTIAZem No dilTIAZem HCl 120 MG HCl 120 MG HCl 120 MG Symbicort Symbicort No BID Symbicort 160-4.5 160-4.5 160-4.5 MCG/ACT MCG/ACT MCG/ACT Zoloft 100 Zoloft 100 No 1{table QD Zoloft 100 MG MG t} MG ProAir HFA ProAir HFA No 2{puffs QID ProAir HFA 108 (90 108 (90 _as_nee 108 (90 Base) Base) ded} Base) MCG/ACT MCG/ACT MCG/ACT Albuterol Albuterol No 3{ml_as Albuterol Sulfate Sulfate _needed Sulfate 0.63 MG/3ML 0.63 MG/3ML } 0.63 MG/3ML hydrALAZINE hydrALAZINE No 1{table BID hydrALAZIN HCl 50 MG HCl 50 MG t_with_ E HCl 50 food} MG Fluticasone Fluticasone No 1{puff} BID Fluticason -Salmeterol -Salmeterol e-Salmeter 250-50 250-50 ol 250-50 MCG/DOSE MCG/DOSE MCG/DOSE dilTIAZem dilTIAZem No dilTIAZem HCl 120 MG HCl 120 MG HCl 120 MG Budesonide Budesonide No 2{ml} QD Budesonide 0.5 MG/2ML 0.5 MG/2ML 0.5 MG/2ML Albuterol Albuterol No Albuterol Sulfate HFA Sulfate HFA Sulfate 108 (90 108 (90 HFA 108 Base) Base) (90 Base) MCG/ACT MCG/ACT MCG/ACT ProAir HFA ProAir HFA No ProAir HFA 108 (90 108 (90 108 (90 Base) Base) Base) MCG/ACT MCG/ACT MCG/ACT dilTIAZem dilTIAZem No dilTIAZem HCl 120 MG HCl 120 MG HCl 120 MG Fluticasone Fluticasone No 1{puff} BID Fluticason -Salmeterol -Salmeterol e-Salmeter 250-50 250-50 ol 250-50 MCG/DOSE MCG/DOSE MCG/DOSE Zoloft 100 Zoloft 100 No 1{table QD Zoloft 100 MG MG t} MG ProAir HFA ProAir HFA No 2{puffs QID ProAir HFA 108 (90 108 (90 _as_nee 108 (90 Base) Base) ded} Base) MCG/ACT MCG/ACT MCG/ACT Symbicort Symbicort No Symbicort 160-4.5 160-4.5 160-4.5 MCG/ACT MCG/ACT MCG/ACT hydrALAZINE hydrALAZINE No 1{table BID hydrALAZIN HCl 50 MG HCl 50 MG t_with_ E HCl 50 food} MG ProAir HFA ProAir HFA No ProAir HFA 108 (90 108 (90 108 (90 Base) Base) Base) MCG/ACT MCG/ACT MCG/ACT dilTIAZem dilTIAZem No dilTIAZem HCl 120 MG HCl 120 MG HCl 120 MG Budesonide Budesonide No 2{ml} QD Budesonide 0.5 MG/2ML 0.5 MG/2ML 0.5 MG/2ML Albuterol Albuterol No Albuterol Sulfate HFA Sulfate HFA Sulfate 108 (90 108 (90 HFA 108 Base) Base) (90 Base) MCG/ACT MCG/ACT MCG/ACT Albuterol Albuterol No Albuterol Sulfate Sulfate Sulfate 0.63 MG/3ML 0.63 MG/3ML 0.63 MG/3ML Fluticasone Fluticasone No 1{puff} BID Fluticason -Salmeterol -Salmeterol e-Salmeter 250-50 250-50 ol 250-50 MCG/DOSE MCG/DOSE MCG/DOSE ProAir HFA ProAir HFA No 2{puffs QID ProAir HFA 108 (90 108 (90 _as_nee 108 (90 Base) Base) ded} Base) MCG/ACT MCG/ACT MCG/ACT amLODIPine amLODIPine No 1{table QD amLODIPine Besylate 10 Besylate 10 t} Besylate MG MG 10 MG Albuterol Albuterol No 3{ml_as Albuterol Sulfate Sulfate _needed Sulfate 0.63 MG/3ML 0.63 MG/3ML } 0.63 MG/3ML Budesonide- Budesonide- No BID Budesonide Formoterol Formoterol -Formotero Fumarate Fumarate l Fumarate 160-4.5 160-4.5 160-4.5 MCG/ACT MCG/ACT MCG/ACT Zoloft 100 Zoloft 100 No 1{table QD Zoloft 100 MG MG t} MG amLODIPine amLODIPine No 1{table QD amLODIPine Besylate 10 Besylate 10 t} Besylate MG MG 10 MG hydroCHLORO hydroCHLORO No 1{capsu QD hydroCHLOR thiazide thiazide le_in_t Othiazide 12.5 MG 12.5 MG he_morn 12.5 MG ing} Albuterol Albuterol No 1{puff_ 6xD Albuterol Sulfate HFA Sulfate HFA as_need Sulfate 108 (90 108 (90 ed} HFA 108 Base) Base) (90 Base) MCG/ACT MCG/ACT MCG/ACT Fluticasone Fluticasone No 1{puff} BID Fluticason -Salmeterol -Salmeterol e-Salmeter 250-50 250-50 ol 250-50 MCG/DOSE MCG/DOSE MCG/DOSE hydroCHLORO hydroCHLORO No 1{capsu QD hydroCHLOR thiazide thiazide le_in_t Othiazide 12.5 MG 12.5 MG he_morn 12.5 MG ing} Budesonide- Budesonide- No BID Budesonide Formoterol Formoterol -Formotero Fumarate Fumarate l Fumarate 160-4.5 160-4.5 160-4.5 MCG/ACT MCG/ACT MCG/ACT amLODIPine amLODIPine No 1{table QD amLODIPine Besylate 10 Besylate 10 t} Besylate MG MG 10 MG Albuterol Albuterol No 3{ml_as Albuterol Sulfate Sulfate _needed Sulfate 0.63 MG/3ML 0.63 MG/3ML } 0.63 MG/3ML Albuterol Albuterol No 1{puff_ 6xD Albuterol Sulfate HFA Sulfate HFA as_need Sulfate 108 (90 108 (90 ed} HFA 108 Base) Base) (90 Base) MCG/ACT MCG/ACT MCG/ACT Zoloft 100 Zoloft 100 No 1{table QD Zoloft 100 MG MG t} MG ProAir HFA ProAir HFA No 2{puffs QID ProAir HFA 108 (90 108 (90 _as_nee 108 (90 Base) Base) ded} Base) MCG/ACT MCG/ACT MCG/ACT amLODIPine amLODIPine No 1{table QD amLODIPine Besylate 10 Besylate 10 t} Besylate MG MG 10 MG Fluticasone Fluticasone No 1{puff} BID Fluticason -Salmeterol -Salmeterol e-Salmeter 250-50 250-50 ol 250-50 MCG/DOSE MCG/DOSE MCG/DOSE hydroCHLORO hydroCHLORO No 1{capsu QD hydroCHLOR thiazide thiazide le_in_t Othiazide 12.5 MG 12.5 MG he_morn 12.5 MG ing} amLODIPine amLODIPine No 1{table QD amLODIPine Besylate 10 Besylate 10 t} Besylate MG MG 10 MG Albuterol Albuterol No 3{ml_as Albuterol Sulfate Sulfate _needed Sulfate 0.63 MG/3ML 0.63 MG/3ML } 0.63 MG/3ML Albuterol Albuterol No 1{puff_ 6xD Albuterol Sulfate HFA Sulfate HFA as_need Sulfate 108 (90 108 (90 ed} HFA 108 Base) Base) (90 Base) MCG/ACT MCG/ACT MCG/ACT Zoloft 100 Zoloft 100 No 1{table QD Zoloft 100 MG MG t} MG ProAir HFA ProAir HFA No 2{puffs QID ProAir HFA 108 (90 108 (90 _as_nee 108 (90 Base) Base) ded} Base) MCG/ACT MCG/ACT MCG/ACT amLODIPine amLODIPine No 1{table QD amLODIPine Besylate 10 Besylate 10 t} Besylate MG MG 10 MG Symbicort Symbicort 2021- No BID Symbicort 160-4.5 160-4.5 03-03 160-4.5 MCG/ACT MCG/ACT 00:00 MCG/ACT :00 Symbicort Symbicort 2021- No BID Symbicort 160-4.5 160-4.5 03-03 160-4.5 MCG/ACT MCG/ACT 00:00 MCG/ACT :00 Symbicort Symbicort 2021- No BID Symbicort 160-4.5 160-4.5 03-03 160-4.5 MCG/ACT MCG/ACT 00:00 MCG/ACT :00 Symbicort Symbicort 2021- No BID Symbicort 160-4.5 160-4.5 03-03 160-4.5 MCG/ACT MCG/ACT 00:00 MCG/ACT :00 Symbicort Symbicort 2021- No BID Symbicort 160-4.5 160-4.5 03-03 160-4.5 MCG/ACT MCG/ACT 00:00 MCG/ACT :00 Immunizations Ordered Filled Immunization Date Status Comments [facility] e Immunization Name Name Prevnar 20 (PCV20) Prevnar 20 (PCV20) 2021-08-03 Completed [facility] - 14:23:00 [facility] Boostrix (Tdap) Boostrix (Tdap) 2021-08-03 [facility]:00 [facility] Prevnar 20 (PCV20) Prevnar 20 (PCV20) 2021-08-03 Completed [facility] - 14:23:00 [facility] Boostrix (Tdap) Boostrix (Tdap) 2021-08-03 [facility] - 14:23:00 [facility] Prevnar 20 (PCV20) Prevnar 20 (PCV20) 2021-08-03 Completed [facility] - 14:23:00 [facility] Boostrix (Tdap) Boostrix (Tdap) 2021-08-03 Com[facility] - 14:23:00 [facility] Prevnar 20 (PCV20) Prevnar 20 (PCV20) 2021-08-03 Completed [facility] - 14:23:00 [facility] Boostrix (Tdap) Boostrix (Tdap) 2021-08-03 Com[facility] - 14:23:00 [facility] Prevnar 20 (PCV20) Prevnar 20 (PCV20) 2021-08-03 Completed [facility] - 14:23:00 [facility] Boostrix (Tdap) Boostrix (Tdap) 2021-08-03 [facility] - 14:23:00 [facility] Prevnar 20 (PCV20) Prevnar 20 (PCV20) 2021-08-03 [facility]pleted [facility]00 [facility] Boostrix (Tdap) Boostrix (Tdap) 2021-08-03 Completed [facility] 14:23[facility]00 [facility] Prevnar 20 (PCV20) Prevnar 20 (PCV20) 2021-08-03 [facility]pleted [facility] 14:23:00 [facility] Boostrix (Tdap) Boostrix (Tdap) 2021-08-03 Completed [facility] - 14:23:00 [facility] Prevnar 20 (PCV20) Prevnar 20 (PCV20) 2021-08-03 [facility]pleted [facility] 14:23:00 [facility] Boostrix (Tdap) Boostrix (Tdap) 2021-08-03 Completed [facility] 14:23:00 [facility] Prevnar 20 (PCV20) Prevnar 20 (PCV20) 2021-08-03 [facility]pleted [facility] 14:23[facility]00 [facility] Boostrix (Tdap) Boostrix (Tdap) 2021-08-03 [facility]pleted [facility] 14:23:00 [facility] Prevnar 20 (PCV20) Prevnar 20 (PCV20) 2021-08-03 [facility] 14:23:00 [facility] Boostrix (Tdap) Boostrix (Tdap) 2021-08-03 Completed [facility] 14:23:00 [facility] Prevnar 20 (PCV20) Prevnar 20 (PCV20) 2021-08-03 [facility]pleted [facility]00 [facility] Boostrix (Tdap) Boostrix (Tdap) 2021-08-03 Completed [facility] 14:23:00 [facility] Pneumococcal 2018-03-21 Completed University o f Polysaccharide, 00:00:00 [place] [facility] PPSV23 (PNEUMOVAX) Branch Influenza Virus 2018-03-21 Completed Universit y of Vaccine Quad .5 mL 00:00:00 [facility] 6+ MO Branch Pneumococcal 2018-03-21 Completed University o f Polysaccharide, 00:00:00 [place] [facility] PPSV23 (PNEUMOVAX) Branch Influenza Virus 2018-03-21 Completed Universit y of Vaccine Quad .5 mL 00:00:00 [facility] IM 6+ MO Branch Pneumococcal 2018-03-21 Completed University o f Polysaccharide, 00:00:00 [place] [facility] PPSV23 (PNEUMOVAX) Branch Influenza Virus 2018-03-21 Completed Universit y of Vaccine Quad .5 mL 00:00:00 [facility] IM 6+ MO Branch Pneumococcal 2018-03-21 Completed University o f Polysaccharide, 00:00:00 [place] [facility] PPSV23 (PNEUMOVAX) Branch Influenza Virus 2018-03-21 Completed Universit y of Vaccine Quad .5 mL 00:00:00 [place] [facility] 6+ [place] [facility] Pneumococcal 2018-03-21 Completed University o f Polysaccharide, 00:00:00 [place] [facility] PPSV23 (PNEUMOVAX) Branch Influenza Virus 2018-03-21 Completed Universit y of Vaccine Quad .5 mL 00:00:00 [facility] 6+ MO Branch Pneumococcal 2018-03-21 Completed University o f Polysaccharide, 00:00:00 [place] [facility] PPSV23 (PNEUMOVAX) Branch Influenza Virus 2018-03-21 Completed Universit y of Vaccine Quad .5 mL 00:00:00 [facility] 6+ MO Branch Vital Signs Vital Name Observation Time Observation Value Comments Source height 2022-03-02 14:40:00 61 [in_i] [facility] weight 2022-03-02 14:40:00 123.9 [lb_av] [facility] temperature 2022-03-02 14:40:00 97.2 [degF] [facility] bmi 2022-03-02 14:40:00 23.41 kg/m2 [facility] oximetry 2022-03-02 14:40:00 95 % [facility] respiratory rate 2022-03-02 14:40:00 17 /min Comm on [facility] blood pressure 2022-03-02 14:40:00 122 mm[Hg] Common [facility] - systolic [facility] blood pressure 2022-03-02 14:40:00 76 mm[Hg] Common [facility] - diastolic [facility] height 2022-02-18 13:00:00 61 [in_i] Common [facility] weight 2022-02-18 13:00:00 126 [lb_av] Common [facility] temperature 2022-02-18 13:00:00 98 [degF] Common [facility] bmi 2022-02-18 13:00:00 23.8 kg/m2 [facility] blood pressure 2022-02-18 13:00:00 132 mm[Hg] Common [facility] - systolic [facility] blood pressure 2022-02-18 13:00:00 76 mm[Hg] Common [facility] - diastolic [facility] height 2021-11-30 15:10:00 61 [in_i] Common [facility] weight 2021-11-30 15:10:00 125.9 [lb_av] [facility] temperature 2021-11-30 15:10:00 97.4 [degF] Common [facility] bmi 2021-11-30 15:10:00 23.79 kg/m2 [facility] oximetry 2021-11-30 15:10:00 96 % [facility] respiratory rate 2021-11-30 15:10:00 17 /min Comm on [facility] blood pressure 2021-11-30 15:10:00 142 mm[Hg] Common [facility] - systolic [facility] blood pressure 2021-11-30 15:10:00 77 mm[Hg] Common [facility] - diastolic [facility] height 2021-07-24 08:20:00 61 [in_i] Common [facility] weight 2021-07-24 08:20:00 109 [lb_av] Common [facility] bmi 2021-07-24 08:20:00 20.59 kg/m2 [facility] oximetry 2021-07-24 08:20:00 96 % Common [facility] Systolic blood 2021-03-15 17:29:00 139 mm[Hg] Desirae nicholas of [facility] Diastolic blood 2021-03-15 17:29:00 84 mm[Hg] Unive rsity of pressure [facility] Heart rate 2021-03-15 17:29:00 78 /min Universi ty [facility] Body temperature 2021-03-15 17:29:00 37.17 Venita [facility] Respiratory rate 2021-03-15 17:29:00 17 /min [facility] Oxygen saturation in 2021-03-15 17:29:00 97 /min [facility] Arterial blood by [facility] Pulse oximetry Branch Body weight 2021-03-15 10:36:00 53.978 kg Universi ty [facility] BMI 2021-03-15 10:36:00 22.48 kg[facility]m2 [facility] height 2021-03-11 19:47:00 154.9 cm [facility] ty [facility] height 2021-02-24 13:10:00 61 [in_i] [facility] weight 2021-02-24 13:10:00 109 [lb_av] [facility] temperature 2021-02-24 13:10:00 97.4 [degF] [facility] bmi 2021-02-24 13:10:00 20.59 kg/m2 [facility] blood pressure 2021-02-24 13:10:00 131 mm[Hg] [facility] blood pressure 2021-02-24 13:10:00 76 mm[Hg] [facility] - diastolic [facility] Systolic blood 2020-12-17 23:30:00 105 mm[Hg] Univer sity of [facility] Diastolic blood 2020-12-17 23:30:00 96 mm[Hg] Unive rsity of [facility] Heart rate 2020-12-17 23:30:00 92 /min Universi ty [facility] Body temperature 2020-12-17 23:30:00 36.44 Venita [facility] Respiratory rate 2020-12-17 23:30:00 14 /min Univ ersity of [facility] Body weight 2020-12-17 23:30:00 53.524 kg Universi ty [facility] [place] [facility] BMI 2020-12-17 23:30:00 22.30 kg/m2 [facility] Medical Branch Oxygen saturation in 2020-12-17 23:30:00 93 /min University of Arterial blood by [facility] Pulse oximetry Branch Systolic blood 2020-12-12 00:58:50 130 mm[Hg] Univer sity of pressure [facility] Diastolic blood 2020-12-12 00:58:50 81 mm[Hg] [facility] [place] Heart rate 2020-12-12 00:58:50 83 /min [facility] [place] Respiratory rate 2020-12-12 00:58:50 18 /min [facility] Oxygen saturation in 2020-12-12 00:58:50 96 /min [place] [facility] Arterial blood by [facility] Pulse oximetry Branch Body temperature 2020-12-11 23:26:00 36.72 Venita [facility] Body weight 2020-12-11 23:26:00 53.524 kg Universi [facility] Medical Branch BMI 2020-12-11 23:26:00 22.30 kg/m2 [facility] [place] Procedures Procedure Date / Time Performing Clinician Source Performed EXTERNAL PROVIDER - [facility] 2022-02-16 06:01:00 Doctor Unadennis, U [facility] REFERRAL [facility] THORAX WO CONTRAST 2021-05-25 15:12:10 Hung Garcia [facility] NO SHOW OR MISSED 2021-05-25 14:51:50 Doctor Ada, [facility] APPOINTMENT POLICY [facility] ACKNOWLEDGEMENT [facility] PATIENT FINANCIAL 2021-05-25 14:51:34 Doctor Unadennis, [facility] POLICY [facility] NOTICE OF PRIVACY 2021-05-25 14:51:16 Doctor Ada, [facility] PRACTICES [facility] CONSENT/REFUSAL FOR 2021-05-25 14:51:00 Doctor Ada, [facility] DIAGNOSIS AND TREATMENT [facility] ASSIGNMENT OF BENEFITS 2021-05-25 14:50:42 Doctor Unassigned, [facility] BASIC METABOLIC PANEL (NA, 2021-03-15 11:24:00 Daniel Farias [facility] K, CL, CO2, GLUCOSE, BUN, Medica l Branch CREATININE, CA) PHOSPHORUS 2021-03-14 11:53:00 Daniel Farias [facility] MAGNESIUM 2021-03-14 11:53:[address] [facility] COMP. METABOLIC PANEL 2021-03-14 11:53:00 Alexandr [facility] ([id number]) [facility] N-TERMINAL PRO-BNP 2021-03-14 11:53:00 Alexandr [facility] MAGNESIUM 2021-03-13 10:29:00 Alexandr [facility] COMP. METABOLIC PANEL 2021-03-13 10:29:00 Alexandr [facility] ([id number]) [facility] CBC WITH DIFF 2021-03-13 10:29:[address] [facility] N-TERMINAL PRO-BNP 2021-03-13 10:29:00 Alexandr gonzalo [facility] AFB CULTURE 2021-03-12 22:20:00 Francine Koroma [facility] SPUTUM CULTURE 2021-03-12 22:20:[address] [facility] MYCOBACTERIUM TUBERCULOSIS 2021-03-12 22:20:00 Francine Koroma [facility] COMPLEX PCR [facility] QUANTIFERON-TB ASSAY 2021-03-12 22:19:00 Jennifer Bryant [facility] TRANSTHORACIC ECHO (TTE) 2021-03-12 15:48:00 Dre Diaz [facility] COMPLETE [facility] URINE CULTURE 2021-03-12 11:01:00 Alexandr [facility] UREA NITROGEN, URINE 2021-03-12 11:01:00 Amber Strange [facility] RANDOM [facility] SODIUM, URINE RANDOM 2021-03-12 11:00:00 Alexandr [facility] PROTEIN CREAT RATIO URINE 2021-03-12 11:00:00 Amber Strange [facility] RANDOM [facility] PROTHROMBIN TIME / INR 2021-03-12 10:48:00 Amber Strange [facility] VITAMIN D, 25-OH 2021-03-12 10:48:00 Alexandr [facility] VITAMIN B12, LEVEL 2021-03-12 10:47:00 Alexandr gonzalo [facility] FREE T4 2021-03-12 10:47:00 Daniel Farias [facility] MYCOPLASMA PNEUMONIAE 2021-03-12 10:47:00 Alexandr gonzalo [facility] ANTIBODY, IGM [facility] PROCALCITONIN 2021-03-12 10:47:00 Alexandr [facility] PHOSPHORUS 2021-03-12 10:46:00 Alexandr [facility] CREATINE KINASE 2021-03-12 10:46:00 Alexandr [facility] URIC ACID 2021-03-12 10:46:00 Alexandr [facility] MAGNESIUM 2021-03-12 10:46:00 Alexandr [facility] TROPONIN I 2021-03-12 10:46:00 Alexandr [facility] THYROID STIMULATING 2021-03-12 10:46:00 Amber Strange [facility] HORMONE [facility] COMP. METABOLIC PANEL 2021-03-12 10:46:00 Amber Strange [facility] ([id number]) [facility] LIPID PANEL ([id number])(TOTAL 2021-03-12 10:46:00 Amber Strange [facility] CHOLESTEROL, [facility] TRIGLYCERIDES, HDL) CBC WITH DIFF 2021-03-12 10:46:00 Daniel Farias [facility] N-TERMINAL PRO-BNP 2021-03-12 10:46:00 Alexandr gonzalo [facility] FREE T3 2021-03-12 10:46:00 Abdullah, [facility] AC VBG + LACTIC ACID 2021-03-12 10:45:00 Amber Strange [facility] PNEUMOCOCCAL ANTIGEN 2021-03-12 00:07:00 Daniel Farias [facility] RESPIRATORY PANEL BY PCR 2021-03-11 19:41:00 Daniel Farias [facility] COVID-19 (MOLECULAR 2021-03-11 19:41:00 Daniel Farias [facility] TESTING [facility] NUCLEIC ACID AMPLIFICATION) LAB ONLY COVID 2021-03-11 19:41:00 Dinora [facility] COVID-19 (ID NOW RAPID 2021-03-11 17:05:00 Singer Boris [facility] TESTING) Medical Branch LAB ONLY COVID 2021-03-11 17:05:[address] [facility] URINALYSIS 2021-03-11 16:51:00 Singer [facility] BLOOD CULTURE SCREEN 2021-03-11 15:36:00 Boris Armstrong [facility] CT THORAX W CONTRAST 2021-03-11 15:09:28 [facility] XR CHEST 1 VW 2021-03-11 14:27:46 [facility] PHOSPHORUS 2021-03-11 14:20:[address] [facility] TROPONIN I 2021-03-11 14:20:00 [facility] COMP. METABOLIC PANEL 2021-03-11 14:20:00 Boris Armstrong [facility] ([id number]) Medical Branch CBC WITH DIFF 2021-03-11 14:20:00 [facility] GLYCOSYLATED HEMOGLOBIN 2021-03-11 14:20:00 Amber Strange [facility] (A1C) Medical Branch N-TERMINAL PRO-BNP 2021-03-11 14:20:00 Singer Boris [facility] HB ECG ROUTINE & RHYTHM 2021-03-11 14:11:58 Armstrong, Boris [facility] CONSENT/REFUSAL FOR 2021-03-11 13:58:09 [facility] DIAGNOSIS AND TREATMENT [facility] NOTICE OF PRIVACY 2020-12-17 23:18:27 Doctor Unadennis [facility] PRACTICES [facility] XR ANKLE 3+ VW RIGHT 2020-12-11 23:55:50 Kane Wyatt [facility] XR FOOT 3+ VW RIGHT 2020-12-11 23:55:50 Kane Wyatt [facility] XR TIBIA FIBULA 2 VW RIGHT 2020-12-11 23:55:50 Kane Wyatt [facility] CONSENT/REFUSAL FOR 2020-12-11 23:15:23 Doctor Unadennis [facility] DIAGNOSIS AND TREATMENT [facility] Encounters Start End Encounter Admission Attending Care Care Encounter Source Date/Time Date/Time Type Type Clinicians Facility Department ID 2022-02-16 Outpatient Ma, STLMLC [facility] [id number] Common 09:57:00 Tania 12221 [facility] 2021-05-06 Outpatient Ma, STLM [facility] [id number] Common 14:13:26 Tania 44753 [facility] 2021-05-06 Outpatient Ma, STLMLC [facility] [id number] Common 12:54:04 Tania 53212 [facility] 2021-05-06 Outpatient Ma, [facility]LMLC [facility] [id number] Common 12:15:50 Tania 54865 [facility] 2021-05-06 Outpatient Ma, STLMLC [facility] [id number] Common 12:15:16 Tania 10385 [facility] 2021-05-06 Outpatient Ma, [facility]LMLC [facility] [id number] Common 11:19:02 Tania 35234 [facility] 2021-05-06 Outpatient Ma, STLM [facility] [id number] Common 11:18:50 Tania 76080 [facility] 2021-05-06 Outpatient Ma, STLMLC [facility] [id number] Common 11:18:37 [facility] [address] [facility] 2022-03-22 2022-03-22 (TEL) STLMLC STLMLC [id number] Co mmon 00:00:00 00:00:00 [facility] 2022-03-18 2022-03-18 Outpatient Sarah KYLE [facility] [id number] Univers 15:20:00 15:20:00 DENNIS locke [facility] 2022-03-02 2022-03-02 OFFICE STLMLC STLMLC [id number] Co mmon 00:00:00 00:00:00 VISIT [facility] PT - CHI LEVEL 4 [facility] 2022-02-18 2022-02-18 (TEL) STLMLC STLMLC [id number] Co mmon 00:00:00 00:00:00 [facility] 2022-02-18 2022-02-18 OFFICE STLMLC STLMLC [id number] Co mmon 00:00:00 00:00:00 VISIT [facility] PT - CHI LEVEL 4 [facility] 2022-02-16 2022-02-16 Orders Doctor MACIE [id number] Univers 00:00:00 00:00:00 Only Unassigned, RENEE [id number] ity of [place] [id number] Jeremy as [id number] [address] 2022-02-15 2022-02-15 (TEL) STLMLC STLMLC [id number] Co mmon 00:00:00 00:00:00 [facility] 2022-02-01 2022-02-01 (TEL) STLMLC STLMLC [id number] Co mmon 00:00:00 00:00:00 [facility] 2021-12-17 2021-12-17 (TEL) STLMLC STLMLC [id number] Co mmon 00:00:00 00:00:00 [facility] 2021-12-01 2021-12-01 (TEL) STLMLC STLMLC [id number] Co mmon 00:00:00 00:00:00 [facility] 2021-11-30 2021-11-30 OFFICE STLMLC STLMLC [id number] Co mmon 00:00:00 00:00:00 [facility] ESTAB PT - CHI LEVEL 4 [facility] 2021-08-18 2021-08-18 (TEL) STLMLC STLMLC [id number] Co mmon 00:00:00 00:00:00 [facility] 2021-08-03 2021-08-03 (TEL) STLMLC STLMLC [id number] Co mmon 00:00:00 00:00:00 [facility] 2021-07-24 2021-07-24 OFFICE STLMLC STLMLC [id number] Co mmon 00:00:00 00:00:00 VISIT EST Spir it PT LEVEL 3 [facility] 2021-07-23 2021-07-23 (TEL) STLMLC STLMLC [id number] Co mmon 00:00:00 00:00:00 [facility] 2021-06-12 2021-06-12 (TEL) STLMLC STLMLC [id number] Co mmon 00:00:00 00:00:00 [facility] 2021-05-25 2021-05-25 Outpatient R [facility] [id number] [facility] 08:55:01 23:59:00 HUNG garner [facility] 2021-05-25 2021-05-25 [facility] [id number] [facility] 08:55:01 23:59:00 Encounter Hung JONES [id number] pascual [facility] [id number] [facility] [id number] [address] 2021-05-18 2021-05-18 (TEL) STLMLC STLMLC [id number] Co mmon 00:00:00 00:00:00 [facility] 2021-04-14 2021-04-14 (TEL) STLMLC STLMLC [id number] Co mmon 00:00:00 00:00:00 [facility] - [facility] 2021-04-13 2021-04-13 (TEL) STLMLC STLMLC [id number] Co mmon 00:00:00 00:00:00 [facility] 2021-03-27 2021-03-27 (TEL) STLMLC STLMLC [id number] Co mmon 00:00:00 00:00:00 [facility] 2021-03-17 2021-03-17 (TEL) STLMLC STLMLC [id number] Co mmon 00:00:00 00:00:00 [facility] 2021-03-17 2021-03-17 Transition GEMMA Chakraborty [id number] Univers 00:00:00 00:00:00 of Care Kayce VITALE [id number] ity of CLAUDIO [id number] [facility] [id number] [facility] 403 Branch 2021-03-11 2021-03-15 [facility] Boris Armstrong [facility] [id number] Univers 08:12:00 13:15:00 Encounter Daniel Farias [id number] ity of [place] [id number] [facility] [id number] [facility] 081 Branch 2021-03-11 2021-03-15 Inpatient X DINORA WVENMANUEL JENNY [id number] Univers 08:12:00 13:15:00 DANIEL itnatasha of [facility] 2021-03-13 2021-03-13 (TEL) STLMLC STLMLC [id number] Co mmon 00:00:00 00:00:00 [facility] 2021-02-24 2021-02-24 OFFICE STLMLC STLMLC [id number] Co mmon 00:00:00 00:00:[address] [facility] LEVEL 4 [facility] 2021-01-05 2021-01-05 (TEL) STLMLC STLMLC [id number] Co mmon 00:00:00 00:00:00 [facility] 2020-12-17 2020-12-17 Emergency [facility] [id number] Univers 18:31:00 22:09:00 Mindy Jones [id number] ity [facility] [id number] [facility] [id number] [address] 2020-12-17 2020-12-17 Emergency X [facility] ERT [id number] Univers 18:18:00 18:18:00 ity [facility] 2020-12-17 2020-12-17 Outpatient STLMLC STLMLC [id number] Common 00:00:00 00:00:00 [facility] 2020-12-11 2020-12-11 Emergency [facility] [id number] Univers 18:28:00 21:10:00 Kane Jones [id number] i ty [facility] [id number] [facility] [id number] [address] 2020-12-11 2020-12-11 Emergency X [facility] ERT [id number] Univers 18:15:00 [facility] 2020-11-18 2020-11-18 Outpatient STLMLC STLMLC [id number] Common 00:00:00 00:00:00 [facility] 2020-10-23 2020-10-23 Outpatient STLMLC STLMLC [id number] Common 00:00:00 00:00:00 [facility] 2020-05-16 2020-05-16 Outpatient STLMLC STLMLC [id number] Common 00:00:00 00:00:00 [facility] 2020-05-01 2020-05-01 Outpatient STLMLC STLMLC [id number] Common 00:00:00 00:00:00 [facility] 2020-04-24 2020-04-24 Outpatient STLMLC STLMLC [id number] Common 00:00:00 00:00:00 [facility] 2020-04-03 2020-04-03 Outpatient STLMLC STLMLC [id number] Common 00:00:00 00:00:00 [facility] 2020-03-22 2020-03-22 Emergency X [facility] ERT [id number] Univers 10:13:00 10:13:00 ity of [facility] 2020-03-20 2020-03-20 Outpatient STLMLC STLMLC [id number] Common 00:00:00 00:00:00 [facility] 2019-11-05 2019-11-05 [facility] [id number] Common 14:50:00 14:50:[address] [facility] 2019-08-28 2019-08-28 [facility] [id number] Common 14:30:00 14:30:[address] [facility] 2019-08-27 2019-08-27 [facility] [id number] Common 14:27:00 14:27:00 t [facility] [address] Sp[address] Road [facility] 2019-08-07 2019-08-07 [facility] [id number] Common 16:23:00 16:23:[address] [facility] 2019-06-11 2019-06-11 [facility] [id number] Common 15:46:00 15:46:[address] [facility] 2019-05-02 2019-05-02 [facility] [id number] Common 11:52:00 11:52:[address] [facility] 2019-05-01 2019-05-01 [facility] [id number] Common 14:45:00 14:45:[address] [facility] 2019-04-02 2019-04-02 [facility] [id number] Common 16:39:00 16:39:[address] [facility] 2019-03-31 2019-03-31 Emergency X SALLY, [facility] ERT [id number] Univers 11:12:08 16:17:00 GILLES garner of [facility] 2019-03-16 2019-03-16 [facility] [id number] Common 15:04:00 15:04:[address] [facility] 2019-03-15 2019-03-15 [facility] [id number] Common 11:17:00 11:17:[address] [facility] 2018-12-14 2018-12-14 [facility] [id number] Common 13:50:00 13:50:[address] [facility] 2018-11-28 2018-11-28 [facility] [place] [id number] Common 11:22:00 11:22:[address] [facility] 2018-11-23 2018-11-23 [facility] [place] [id number] Common 15:00:00 15:00:[address] [facility] 2018-11-17 2018-11-17 [facility] [place] [id number] Common 10:32:00 10:32:[address] [facility] 2018-08-17 2018-08-17 [facility] [place] [id number] Common 13:38:00 13:38:[address] [facility] 2018-07-12 2018-07-12 [facility] [place] [id number] Common 14:55:00 14:55:[address] [facility] 2018-06-22 2018-06-22 [facility] [place] [id number] Common 09:30:00 09:30:[address] [facility] 2018-05-31 2018-05-31 [facility] [place] [id number] Common 16:34:00 16:34:[address] [facility] 2018-04-20 2018-04-20 Outpatient Sharon Flores [id number] Common 16:15:00 16:15:[address] [facility] 2018-04-18 2018-04-18 Outpatient Sharon Herrerat [id number] Common 15:48:00 15:48:[address] [facility] 2018-04-18 2018-04-18 Outpatient Sharon Flores [id number] Common 11:30:00 11:30:[address] [facility] Results Test Description Test Time Test Comments Results Result Comments Source QUANTIFERON-TB ASSAY 2021-03-15 18:48:52 Test Item Value Reference Range Interpretation Comme nts Nil (test code = 50604-3) IU/mL TB1 minus Nil (test code = IU/mL 60606-9) TB2 minus Nil (test code = IU/mL 9702324081) Mitogen minus Nil (test code = IU/mL 65691-0) QFT Gold Plus Result (test code = Indeterminate Negative 53901-6) LINUS (test code = LINUS) The QuantiFERON? TB Gold Plus (in Tube) assay is intended for use as an aid in diagnosis of TB infection. A qualitative result (i.e., Negative, Positive, or Indeterminate) is based on interpretation of the four values, Nil, TB1 minus Nil, TB2 minus Nil, and Mitogen minus Nil. ?The Nil value represents nonspecific reactivity produced by the patient specimen. ?The TB1 minus Nil value indicates the interferon-gamma response of CD4+ T lymphocytes, specifically stimulated by the TB1 antigens. ?The TB2 minus Nil value indicates interferon-gamma response of both CD4+ and CD8+ T lymphocytes, stimulated by TB2 antigens. ?The Mitogen minus Nil value serves as the positive control, demonstrating the successful responsiveness of the T lymphocytes in patient specimen. A negative result suggests that M. tuberculosis infection is unlikely. ?However, in patients with high suspicion of exposure, a negative test should be repeated on a new sample. A positive result indicates an interferon-gamma response to M. tuberculosis antigens, suggesting infection with M. tuberculosis. Positive results in patients at low-risk for tuberculosis should be interpreted with caution and repeat testing on a new sample is advised. ?If repeat testing is positive, treatment may be indicated. ?Consult Infectious Disease Services for further recommendations. False positive results may occur in patients with prior infection with M. marinum, M. szulgai, or M. kansasii. For an indeterminate result, the likelihood of determining infection with M. tuberculosis cannot be determined. ?If clinically indicated, repeat testing on a new sample is advised. For further information, refer to http://www.cdc.gov/mmwr/pdf/rr/za4190.p df and https://doi.org/10.1093/tyler/rar266. [facility]ballMYCOPLASMA PNEUMONIAE ANTIBODY, [id number] 17:06:13 Test Item Value Reference Range Interpretation Comments Mycoplasma IGM (test 0.2 U/L See_Comment INTERPR ETIVE code = 5256-3) INFORMATION: ?Mycoplasma pneumoniae Ab, IgM ?0.76 U/L or less ... ....... Negative: No cl inically ?significan t amount of ?M. pneum oniae IgM antibody ?de tected. ?0.77 - 0.95 U/ L ........... Low Positive: M. pn eumoniae- ?specific I gM presumptively ?detected. Beth ection of a ?follow-u p sample in 1-2 ?week s is recommended to ?assure reactiv ity. ?0.96 U/L or gr eater ....... Positiv e: Highly significant ?amount of M. pneumonia e- ?specific IgM a ntibody ?detected. Ho wever, low levels ? of IgM antibodies may ?occasionally p ersist for more ?th an 12 months post-infection. Performed By: [facility] [address] [place] [id number] aboratory Director: Beatriz Loza MD [Aut omated message] The sy stem which generated this result transmit kae reference range : <=0.76. The reference r valeria was not used to int erpret this result as normal/abnormal . [facility]ballSPUTUM [id number] 13:13:18 Test Item Value Reference Range Interpretation Comments SPUTUM CULTURE 1+ Respiratory miranda: (test code = 622-1) Commensal upper respiratory microorganisms only. Gram stain (test Few Epithelial cells code = 664-3) LINUS (test code = Bacterial pathogens LINUS) associated with lower respiratory infections were not identified, which include Pseudomonas aeruginosa and Staphylococcus aureus (MRSA or MSSA). [facility] (NA, K, CL, CO2, GLUCOSE, BUN, CREATININE, CA)2021-03-15 12:16:09 Test Item Value Reference Range Interpretation Comments NA (test code = 136 mmol/L 135-145 5496791969) K (test code = 4.1 mmol/L 3.5-5.0 6047428151) CL (test code = 100 mmol/L 98-108 9497884096) CO2 TOTAL (test code = 35 mmol/L 23-31 H 8795340970) AGAP (test code = 2-16 L 0546916916) BUN (test code = 12 mg/dL 7-23 2242902167) GLUCOSE (test code = 88 mg/dL 70-110 0307621462) CREATININE (test code = 0.49 mg/dL 0.50-1.04 L 4826094928) CALCIUM (test code = 9.2 mg/dL 8.6-10.6 1965783619) eGFR (test code = mL/min/1.73m2 2072650543) LINUS (test code = LINUS) Association of Glomerular Filtration Rate (GFR) and Staging of Kidney Disease* + --+ --+ ------+| GFR (mL/min/1.73 m2) ?| With Kidney Damage ?| ?Without Kidney Damage+ --------+ --------+ +| ?>90 ?| ?Stage one ?| ? Normal ?+ ---+ ---+ -------+| ?60-89 ?| ?Stage two ?| ? Decreased GFR ? + --+ --+ ------+| ?30-59 ?| ?Stage three ?| ? Stage three ? + --+ --+ ------+| ?15-29 ?| ?Stage four ? | ? Stage four ?+ ---+ ---+ -------+| ?<15 (or dialysis) ? ?| ?Stage five ? | ? Stage five ?+ ---+ ---+ -------+ *Each stage assumes the associated GFR level has been in effect for at least three months. ?Stages 1 to 5, with or without kidney disease, indicate chronic kidney disease. Notes: Determination of stages one and two (with eGFR >59mL/min/1.73 m2) requires estimation of kidney damage for at least three months as defined by structural or functional abnormalities of the kidney, manifested by either:Pathological abnormalities or Markers of kidney damage (including abnormalities in the composition of the blood or urine or abnormalities in imaging tests). Lab Interpretation Abnormal (test code = 29896-2) [facility]2021-12-04 15:02:52 Test Item Value Reference Range Interpretation Comments MAGNESIUM (test code = 9645312078) 2.3 mg/dL 1.7-2.4 Lab Interpretation (test code = Normal 99351-9) [facility]ballPHOSPHORUS2021-12-04 15:02:37 Test Item Value Reference Range Interpretation Comments PHOSPHORUS (test code = 5950009574) 2.7 mg/dL 2.5-5.0 Lab Interpretation (test code = Normal 47927-3) [facility]ballCOMP. METABOLIC PANEL (31210)2021-03-14 13:41:31 Test Item Value Reference Range Interpretation Comments NA (test code = 139 mmol/L 135-145 9259948307) K (test code = 3.0 mmol/L 3.5-5.0 L 2205872402) CL (test code = 101 mmol/L 98-108 9191467391) CO2 TOTAL (test code = 38 mmol/L 23-31 H 2541098910) AGAP (test code = <1 2-16 L 0116559406) BUN (test code = 13 mg/dL 7-23 6072629113) GLUCOSE (test code = 88 mg/dL 70-110 4229288025) CREATININE (test code = 0.52 mg/dL 0.50-1.04 9737089135) TOTAL BILI (test code = 0.4 mg/dL 0.1-1.1 6550013478) CALCIUM (test code = 9.0 mg/dL 8.6-10.6 3341060456) T PROTEIN (test code = 6.5 g/dL 6.3-8.2 6718214203) ALBUMIN (test code = 3.4 g/dL 3.5-5.0 L 7356960005) ALK PHOS (test code = 76 U/L 34-122 8038436887) ALTv (test code = 19 U/L 5-35 1742-6) AST(SGOT) (test code = 20 U/L 13-40 9767673588) eGFR (test code = mL/min/1.73m2 9048937161) LINUS (test code = LINUS) Association of Glomerular Filtration Rate (GFR) and Staging of Kidney Disease* + --+ --+ ------+| GFR (mL/min/1.73 m2) ?| With Kidney Damage ?| ?Without Kidney Damage+ --------+ --------+ +| ?>90 ?| ?Stage one ?| ? Normal ?+ ---+ ---+ -------+| ?60-89 ?| ?Stage two ?| ? Decreased GFR ? + --+ --+ ------+| ?30-59 ?| ?Stage three ?| ? Stage three ? + --+ --+ ------+| ?15-29 ?| ?Stage four ? | ? Stage four ?+ ---+ ---+ -------+| ?<15 (or dialysis) ? ?| ?Stage five ? | ? Stage five ?+ ---+ ---+ -------+ *Each stage assumes the associated GFR level has been in effect for at least three months. ?Stages 1 to 5, with or without kidney disease, indicate chronic kidney disease. Notes: Determination of stages one and two (with eGFR >59mL/min/1.73 m2) requires estimation of kidney damage for at least three months as defined by structural or functional abnormalities of the kidney, manifested by either:Pathological abnormalities or Markers of kidney damage (including abnormalities in the composition of the blood or urine or abnormalities in imaging tests). Lab Interpretation Abnormal (test code = 20572-9) [facility]ballN-TERMINAL [id number] 13:04:13 Test Item Value Reference Range Interpretation Comments NT-proBNP (test code 660 pg/mL See_Comment H [Autom ated = 5276041897) message] The system which generated this result transmitted reference range : <=125. The reference range was not used to interpret this result as normal/abnormal . LINUS (test code = LINUS) Biotin has been reported to cause a negative bias, interpret results relative to patient's use of biotin. Lab Interpretation Abnormal (test code = 00802-3) [facility] TomballMycobacterium Tuberculosis Complex PCR 2021-03-13 17:25:50 Test Item Value Reference Range Interpretation Comments Mycobacterium tuberculosis DNA (test Negative Negative code = 19477-6) Lab Interpretation (test code = Normal 15868-0) [facility] TomballCB WITH [id number] 14:56:13 Test Item Value Reference Range Interpretation Comments WBC (test code = See_Comment H [Automated 8890-2) message] The system which generated this result transmitted reference range : 4.30 - 11.10 10*3/?L. The reference range was not used to interpret this result as normal/abnormal . RBC (test code = See_Comment [Automated 289-8) message] The system which generated this result transmitted reference range : 3.93 - 5.25 10*6/?L. The reference range was not used to interpret this result as normal/abnormal . HGB (test code = 12.6 g/dL 11.6-15.0 718-7) HCT (test code = 38.4 % 35.7-45.2 4544-3) MCV (test code = 97.0 fL 80.6-95.5 H 787-2) MCH (test code = 31.8 pg 25.9-32.8 785-6) MCHC (test code = 32.8 g/dL 31.6-35.1 786-4) RDW-SD (test code = 40.1 fL 39.0-49.9 44883-7) RDW-CV (test code = 11.1 % 12.0-15.5 L 788-0) PLT (test code = See_Comment [Automated 777-3) message] The system which generated this result transmitted reference range : 166 - 358 10*3/?L. The reference range was not used to interpret this result as normal/abnormal . MPV (test code = 10.3 fL 9.5-12.9 70170-1) NRBC/100 WBC (test See_Comment [Automat ed code = 5874261575) message] The system which generated this result transmitted reference range : 0.0 - 10.0 /100 WBCs. The reference range was not used to interpret this result as normal/abnormal . NRBC x10^3 (test code <0.01 See_Comment [Auto mated = 6038758405) message] The system which generated this result transmitted reference range : 10*3/?L. The reference range was not used to interpret this result as normal/abnormal . GRAN MAT (NEUT) % 85.5 % (test code = 770-8) IMM GRAN % (test code 2.40 % = 5263821864) LYMPH % (test code = 4.0 % 736-9) MONO % (test code = 7.8 % 5905-5) EOS % (test code = 0.0 % 713-8) BASO % (test code = 0.3 % 706-2) GRAN MAT x10^3(ANC) 11.44 10*3/uL 1.88-7.09 H (test code = 7459995328) IMM GRAN x10^3 (test 0.32 10*3/uL 0.00-0.06 H code = 2386117907) LYMPH x10^3 (test 0.54 10*3/uL 1.32-3.29 L code = 731-0) MONO x10^3 (test code 1.05 10*3/uL 0.33-0.92 H = 742-7) EOS x10^3 (test code <0.03 0.03-0.39 L = 711-2) BASO x10^3 (test code 0.04 10*3/uL 0.01-0.07 = 704-7) BANDS (test code = MARKED INCREASED A 2862349558) TOXIC CHANGES (test Present A code = 803-7) Lab Interpretation Abnormal (test code = 92526-4) [facility]ballN-TERMINAL [id number] 12:08:19 Test Item Value Reference Range Interpretation Comments NT-proBNP (test code 1010 pg/mL See_Comment H [Autom ated = 2175463237) message] The system which generated this result transmitted reference range : <=125. The reference range was not used to interpret this result as normal/abnormal . LINUS (test code = LINUS) Biotin has been reported to cause a negative bias, interpret results relative to patient's use of biotin. Lab Interpretation Abnormal (test code = 61041-9) [facility] METABOLIC PANEL (59950)2021-03-13 12:01:35 Test Item Value Reference Range Interpretation Comments NA (test code = 141 mmol/L 135-145 1271691617) K (test code = 4.1 mmol/L 3.5-5.0 4208684965) CL (test code = 104 mmol/L 98-108 5603363683) CO2 TOTAL (test code = 34 mmol/L 23-31 H 2593844122) AGAP (test code = 2-16 5767423460) BUN (test code = 18 mg/dL 7-23 5626854701) GLUCOSE (test code = 104 mg/dL 70-110 9655875022) CREATININE (test code = 0.48 mg/dL 0.50-1.04 L 9663237234) TOTAL BILI (test code = 0.4 mg/dL 0.1-1.7 7089497808) CALCIUM (test code = 9.5 mg/dL 8.6-10.6 5189112674) T PROTEIN (test code = 6.2 g/dL 6.3-8.2 L 2312576859) ALBUMIN (test code = 3.4 g/dL 3.5-5.0 L 8149652896) ALK PHOS (test code = 76 U/L 34-122 1989795645) ALTv (test code = 18 U/L 5-35 1742-6) AST(SGOT) (test code = 24 U/L 13-40 1337078680) eGFR (test code = mL/min/1.73m2 9684996109) LINUS (test code = LINUS) Association of Glomerular Filtration Rate (GFR) and Staging of Kidney Disease* + --+ --+ ------+| GFR (mL/min/1.73 m2) ?| With Kidney Damage ?| ?Without Kidney Damage+ --------+ --------+ +| ?>90 ?| ?Stage one ?| ? Normal ?+ ---+ ---+ -------+| ?60-89 ?| ?Stage two ?| ? Decreased GFR ? + --+ --+ ------+| ?30-59 ?| ?Stage three ?| ? Stage three ? + --+ --+ ------+| ?15-29 ?| ?Stage four ? | ? Stage four ?+ ---+ ---+ -------+| ?<15 (or dialysis) ? ?| ?Stage five ? | ? Stage five ?+ ---+ ---+ -------+ *Each stage assumes the associated GFR level has been in effect for at least three months. ?Stages 1 to 5, with or without kidney disease, indicate chronic kidney disease. Notes: Determination of stages one and two (with eGFR >59mL/min/1.73 m2) requires estimation of kidney damage for at least three months as defined by structural or functional abnormalities of the kidney, manifested by either:Pathological abnormalities or Markers of kidney damage (including abnormalities in the composition of the blood or urine or abnormalities in imaging tests). Lab Interpretation Abnormal (test code = 72903-1) [facility]IUM2021-12-03 12:01:35 Test Item Value Reference Range Interpretation Comments MAGNESIUM (test code = 9061413412) 2.4 mg/dL 1.7-2.4 Lab Interpretation (test code = Normal 23838-2) [facility] TomballPROCALCITONIN2021-12-02 20:26:29 Test Item Value Reference Range Interpretation Comments Procalcitonin (test 29.25 ng/mL <0.07 H code = 7999153546) LINUS (test code = LINUS) INTERPRETATION OF PROCALCITONIN RESULTS IN ADULTS >= 18 YEARS OF AGE Initiation and discontinuation of antibiotics on patients with suspected or confirmed Lower Respiratory Tract Infection in Adults >= 18 years of age. + +-------- --------+ + -----+|Procalcitonin |Interpretation ?|Antibiotic ? ? |Considerations ? |ng/mL ? | ?|recommendation | ? + +-------- --------+ + -----+| <0.1 ? | Bacterial ? ? ?| Strongly ? ? ?| ? | ?| infection very | discouraged ? | Overruling: ? | ?| unlikely ? ? ? | ? | ? Clinically unstable ? ? ? + +-------- --------+ + ? High risk for adverse ? ? | <0.25 ?| Bacterial ? ? ?| Discouraged ? | ? outcome ? | ?| infection ? ? ?| ? | ? SEE IMPORTANT NOTE ?| ?| unlikely ? ? ? | ? | ? + +-------- --------+ + -----+| >=0.25 ? ? ? | Bacterial ? ? ?| Encouraged ? ?| ? | ?| infection ? ? ?| ? | ? | ?| likely ? | ? | Consider treatment failure ?+ +------- ---------+ -+ if levels does not decrease | >0.5 ? | Bacterial ? ? ?| Strongly ? ? ?| appropriately ? | ?| infection very | encouraged ? ?| ? | ?| likely ? | ? | ? + +-------- --------+ + -----+ Discontinuation of antibiotics in high-acuity patients with suspected or confirmed sepsis in Adults >= 18 years of age. + +-------- --------+ + -----+|Procalcitonin |Interpretation ?|Antibiotic ? ? |Considerations ? |ng/mL ? | ?|recommendation | ? + +-------- --------+ + -----+| <0.25 ?| Bacterial ? ? ?| Strongly ? ? ?| ? | ?| infection very | discouraged ? | Overruling: ? | ?| unlikely ? ? ? | ? | ? Clinically unstable ? ? ? + +-------- --------+ + ? High risk for adverse ? ? | <0.5 or drop | Bacterial ? ? ?| Discouraged ? | ? outcome ? | >80% from ? ?| infection ? ? ?| ? | ? SEE IMPORTANT NOTE ?| highest PCT ?| unlikely ? ? ? | ? | ? | level ?| ?| ? | ? + +-------- --------+ + -----+| >=0.5 ?| Bacterial ? ? ?| Encouraged ? ?| ? | ?| infection ? ? ?| ? | ? | ?| likely ? | ? | Consider treatment failure ?+ +------- ---------+ -+ if levels does not decrease | >1.0 ? | Bacterial ? ? ?| Strongly ? ? ?| appropriately ? | ?| infection very | encouraged ? ?| ? | ?| likely ? | ? | ? + +-------- --------+ + -----+ Percentage of drop of Procalcitonin calculation for Discontinuation of antibiotics in high-acuity patients with suspected or confirmed sepsis in Adults >= 18 years of age. ? Procalcitonin highest{}-Procalcitonin current{}Delta Procalcitonin = x100% ? Procalcitonin current {} IMPORTANT NOTE: Procalcitonin may be elevated without bacterial infection by physiologic stress related to trauma, yin, chronic dialysis, metastatic cancer, surgery in the past seven days, malaria, some fungal infections, and some forms of vasculitis. The interpretation algorithm may not apply to patients with immunosuppression (equivalent of >10 mg of prednisone daily), HIV with CD4 cell count < 350 cells/mm3, active malignancy on systemic chemotherapy, solid organ transplant or hematopoietic stem cell transplantation, or hospital acquired pneumonia. Additionally, some clinical trials of procalcitonin have excluded patients with shock requiring vasopressor use, acute respiratory failure requiring mechanical ventilation, or those with known lung abscess/empyema. For further information please refer to:[email or web address] Lab Interpretation Abnormal (test code = 20424-5) [facility] [id number] 19:26:07 Test Item Value Reference Range Interpretation Comments FREE T4 (test code = See_Comment [Autom ated message] 3607489140) The system [employer] generated this result transmitted ref erence range: 0.78 - 2 .20 ng/dL:. The ref erence range was not u sed to interpret this result as normal/abnor mal. Lab Interpretation (test Normal code = 90747-2) [facility] [id number] 19:19:32 Test Item Value Reference Range Interpretation Comments FREE T3 (test code = 2525888901) 2.99 pg/mL 2.77-5.27 Lab Interpretation (test code = Normal 88599-1) [facility]ball[facility]ITAMIN B12, [id number] 18:46:42 Test Item Value Reference Range Interpretation Comments VIT B12 (test code = 968 pg/mL 240-930 H 5528610183) LINUS (test code = LINUS) Biotin has been reported to cause a positive bias, interpret results relative to patient's use of biotin. Lab Interpretation (test Abnormal code = 48602-8) [facility]ballVITAMIN D, [id number] 17:48:10 Test Item Value Reference Range Interpretation Comments VIT D 25OH (test code = <13 25-80 L 05602-0) LINUS (test code = LINUS) Deficiency: <20 ng/mLInsufficiency: 20-24 ng/mLOptimal: 25-80 ng/mL Lab Interpretation (test Abnormal code = 18676-4) [facility]ballTHYROID STIMULATING [id number] 15:49:39 Test Item Value Reference Range Interpretation Comments TSH (test code = See_Comment L [Automated message] 7447884181) The system [employer] generated this result transmitted ref erence range: 0.45 - 4 .70 mIU/L. The refe rence range was not u sed to interpret this result as normal/abnor mal. Lab Interpretation (test Abnormal code = 14194-1) [facility] TomballURIC [id number] 15:18:32 Test Item Value Reference Range Interpretation Comments URIC ACID (test code = 0755731648) 2.0 mg/dL 2.9-6.0 L Lab Interpretation (test code = Abnormal 40800-6) [facility] TomballLIPID PANEL (08688)(TOTAL CHOLESTEROL, TRIGLYCERIDES, HDL)2021-03-12 12:38:37 Test Item Value Reference Range Interpretation Comments CHOL (test code = 254 mg/dL 120-200 H 8139003950) HDL (test code = 94 mg/dL >50 1266405125) HDLC RATIO (test code = See_Comment [Au tomated message] 3116651833) The system [employer] generated this result transmit kae reference range : <=4.5. The refe rence range was not u sed to interpret th is result as normal/abnormal . TRIG (test code = 112 mg/dL 30-170 3452716975) LDL CHOL (test code = 138 mg/dL See_Comment [Auto mated message] 81647-5) The system [employer] generated this result transmit kae reference range : <=160. The refe rence range was not u sed to interpret th is result as normal/abnormal . VLDL (test code = 22 mg/dL 5-60 4974256197) Lab Interpretation (test Abnormal code = 02264-8) [facility]ballTROPONIN [id number] 12:36:55 Test Item Value Reference Interpretation Comments Range TROPONIN I (test 0.004 ng/mL See_Comment [Automated code = 1631184816) message] The system which generated this result transmitted reference range : <=0.034. The reference range was not used to interpret this result as normal/abnormal . LINUS (test code = Reference (Normal) LINUS) Range (defined by the 99th percentile reference limit): <= 0.034 ng/mL Note: Cardiac troponin begins to rise 3-4 hours after the onset of ischemia. Repeat in 4-6 hours if the sample was drawn within 3-4 hours of the onset of the symptom and found normal. Diagnosis of myocardial injury is made with acute changes in cTn concentrations with at least one serial sample above the 99th percentile upper reference limit (URL), taken together with the patient's clinical presentation. Biotin has been reported to cause a negative bias, interpret results relative to patient's use of biotin. Lab Interpretation Normal (test code = 06271-2) [facility]ball[facility]-TERMINAL [id number] 12:33:36 Test Item Value Reference Range Interpretation Comments NT-proBNP (test code 727 pg/mL See_Comment H [Autom ated = 0632290453) message] The system which generated this result transmitted reference range : <=125. The reference range was not used to interpret this result as normal/abnormal . LINUS (test code = LINUS) Biotin has been reported to cause a negative bias, interpret results relative to patient's use of biotin. Lab Interpretation Abnormal (test code = 27891-6) [facility]ballMAGNESIUM2021-12-02 12:26:15 Test Item Value Reference Range Interpretation Comments MAGNESIUM (test code = 8822644127) 2.4 mg/dL 1.7-2.4 Lab Interpretation (test code = Normal 01277-2) [facility]ballCOMP. METABOLIC PANEL (61494)2021-03-12 12:25:55 Test Item Value Reference Range Interpretation Comments NA (test code = 140 mmol/L 135-145 5418223308) K (test code = 3.9 mmol/L 3.5-5.0 1808267840) CL (test code = 102 mmol/L 98-108 2867111693) CO2 TOTAL (test code = 32 mmol/L 23-31 H 8062285521) AGAP (test code = 2-16 8937561820) BUN (test code = 8 mg/dL 7-23 3980064158) GLUCOSE (test code = 157 mg/dL 70-110 H 9170073567) CREATININE (test code = 0.41 mg/dL 0.50-1.04 L 4316885543) TOTAL BILI (test code = 0.4 mg/dL 0.1-1.9 2007248374) CALCIUM (test code = 10.3 mg/dL 8.6-10.6 7491958900) T PROTEIN (test code = 7.5 g/dL 6.3-8.2 9308245811) ALBUMIN (test code = 4.2 g/dL 3.5-5.0 1155746186) ALK PHOS (test code = 129 U/L 34-122 H 3725748136) ALTv (test code = 17 U/L 5-35 1742-6) AST(SGOT) (test code = 21 U/L 13-40 4788509521) eGFR (test code = mL/min/1.73m2 5962917772) LINUS (test code = LINUS) Association of Glomerular Filtration Rate (GFR) and Staging of Kidney Disease* + --+ --+ ------+| GFR (mL/min/1.73 m2) ?| With Kidney Damage ?| ?Without Kidney Damage+ --------+ --------+ +| ?>90 ?| ?Stage one ?| ? Normal ?+ ---+ ---+ -------+| ?60-89 ?| ?Stage two ?| ? Decreased GFR ? + --+ --+ ------+| ?30-59 ?| ?Stage three ?| ? Stage three ? + --+ --+ ------+| ?15-29 ?| ?Stage four ? | ? Stage four ?+ ---+ ---+ -------+| ?<15 (or dialysis) ? ?| ?Stage five ? | ? Stage five ?+ ---+ ---+ -------+ *Each stage assumes the associated GFR level has been in effect for at least three months. ?Stages 1 to 5, with or without kidney disease, indicate chronic kidney disease. Notes: Determination of stages one and two (with eGFR >59mL/min/1.73 m2) requires estimation of kidney damage for at least three months as defined by structural or functional abnormalities of the kidney, manifested by either:Pathological abnormalities or Markers of kidney damage (including abnormalities in the composition of the blood or urine or abnormalities in imaging tests). Lab Interpretation Abnormal (test code = 23701-5) [facility] 12:25:55 Test Item Value Reference Range Interpretation Comments PHOSPHORUS (test code = 4689279943) 3.0 mg/dL 2.5-5.0 Lab Interpretation (test code = Normal 50845-8) [facility]AT[facility] [id number] 12:25:34 Test Item Value Reference Range Interpretation Comments CK (test code = 7759553587) 42 U/L 33-194 Lab Interpretation (test code = Normal 27877-2) [facility]ballPROTHROMBIN TIME / [id number] 11:51:09 Test Item Value Reference Range Interpretation Comments PROTIME PATIENT (test See_Comment [Auto mated message] code = 5964-2) The system wh ich generated this result transmitted ref erence range: 12.0 - 1 4.7 Seconds. The re ference range was not u sed to interpret this result as normal/abnor mal. INR (test code = 6301-6) Nor mal INR <1.1; Warfarin Therap eutic range 2.0 to 3. 0 or 2.5 to 3.5, dep ending upon the indica tions. Lab Interpretation (test Normal code = 80494-8) [facility] with [id number] 11:39:52 Test Item Value Reference Range Interpretation Comments WBC (test code = See_Comment [Automated 4090-2) message] The sy stem which generated this result transmitted reference range : 4.30 - 11.10 10*3/?L. The reference range was not used to interpret this result as normal/abnormal . RBC (test code = See_Comment [Automated 249-8) message] The sy stem which generated this result transmitted reference range : 3.93 - 5.25 10*6/?L. The reference range was not used to interpret this result as normal/abnormal . HGB (test code = 14.3 g/dL 11.6-15.0 718-7) HCT (test code = 43.0 % 35.7-45.2 4544-3) MCV (test code = 97.1 fL 80.6-95.5 H 787-2) MCH (test code = 32.3 pg 25.9-32.8 785-6) MCHC (test code = 33.3 g/dL 31.6-35.1 786-4) RDW-SD (test code = 41.0 fL 39.0-49.9 75501-5) RDW-CV (test code = 11.3 % 12.0-15.5 L 788-0) PLT (test code = See_Comment [Automated 777-3) message] The sy stem which generated this result transmitted reference range : 166 - 358 10*3/ ?L. The reference r valeria was not used to interpret this result as normal/abnormal . MPV (test code = 9.7 fL 9.5-12.9 93755-7) NRBC/100 WBC (test See_Comment [Automat ed code = 0653175960) message] The system which generated this result transmitted reference range : 0.0 - 10.0 /100 WBCs. The refer ence range was not u sed to interpret th is result as normal/abnormal . NRBC x10^3 (test code <0.01 See_Comment [Auto mated = 6215362483) message] The s ystem which generated this result transmitted reference range : 10*3/?L. The reference range was not used to interpret this result as normal/abnormal . GRAN MAT (NEUT) % 93.2 % (test code = 770-8) IMM GRAN % (test code 0.90 % = 5076622672) LYMPH % (test code = 3.5 % 736-9) MONO % (test code = 2.2 % 5905-5) EOS % (test code = 0.0 % 713-8) BASO % (test code = 0.2 % 706-2) GRAN MAT x10^3(ANC) 9.59 10*3/uL 1.88-7.09 H (test code = 1195937076) IMM GRAN x10^3 (test 0.09 10*3/uL 0.00-0.06 H code = 4808643844) LYMPH x10^3 (test code 0.36 10*3/uL 1.32-3.29 L = 731-0) MONO x10^3 (test code 0.23 10*3/uL 0.33-0.92 L = 742-7) EOS x10^3 (test code = <0.03 0.03-0.39 L 711-2) BASO x10^3 (test code <0.03 0.01-0.07 = 704-7) Lab Interpretation Abnormal (test code = 26944-5) [facility] VBG + LACTIC [id number] 10:54:41 Test Item Value Reference Range Interpretation Comments PH (test code = 7.32-7.42 L 3469604262) PCO2 YANNA (test code = See_Comment H [Auto mated 8545940575) message] The sy stem which generated this result transmitted reference range : 41 - 51 mmHg. The reference range was not used to interpret this result as normal/abnormal . PO2 YANNA (test code = See_Comment L [Autom ated 0537695670) message] The sy stem which generated this result transmitted reference range : 25 - 40 mmHg. The reference range was not used to interpret this result as normal/abnormal . HCO3 YANNA (test code = See_Comment H [Auto mated 4670831550) message] The sy stem which generated this result transmitted reference range : 24 - 28 mEq/L. The reference range was not used to interpret this result as normal/abnormal . AC VBE(BEAKER) (test mEq/L code = 5733112450) LACTIC ACID (test code 1.09 mmol/L 0.50-2.20 = 9416247450) Lab Interpretation Abnormal (test code = 01791-8) [facility]ballGLYCOSYLATED HEMOGLOBIN (A1C)2021-03-12 07:22:25 Test Item Value Reference Range Interpretation Comments HGB A1C (test code = 4.8 % 4.0-5.7 4548-4) LINUS (test code = LINUS) Reference RangesNormal: <5.7%Prediabetes: 5.7 - 6.4%Diabetes: > 6.5% Lab Interpretation (test Normal code = 92195-2) [facility]ballPhosphorus [id number] 07:06:20 Test Item Value Reference Range Interpretation Comments PHOSPHORUS (test code = 3.0 mg/dL 2.5-5.0 Slig ht hemolysis 8719315912) Lab Interpretation (test Normal code = 37203-8) [facility] WITH [id number] 15:20:56 Test Item Value Reference Range Interpretation Comments WBC (test code = See_Comment H [Automated 6690-2) message] The system which generated this result transmitted reference range : 4.30 - 11.10 10*3/?L. The reference range was not used to interpret this result as normal/abnormal . RBC (test code = See_Comment [Automated 789-8) message] The system which generated this result transmitted reference range : 3.93 - 5.25 10*6/?L. The reference range was not used to interpret this result as normal/abnormal . HGB (test code = 14.0 g/dL 11.6-15.0 718-7) HCT (test code = 41.7 % 35.7-45.2 4544-3) MCV (test code = 96.5 fL 80.6-95.5 H 787-2) MCH (test code = 32.4 pg 25.9-32.8 785-6) MCHC (test code = 33.6 g/dL 31.6-35.1 786-4) RDW-SD (test code = 40.9 fL 39.0-49.9 24751-8) RDW-CV (test code = 11.5 % 12.0-15.5 L 788-0) PLT (test code = See_Comment [Automated 777-3) message] The system which generated this result transmitted reference range : 166 - 358 10*3/?L. The reference range was not used to interpret this result as normal/abnormal . MPV (test code = 10.8 fL 9.5-12.9 37819-3) NRBC/100 WBC (test See_Comment [Automat ed code = 0016561895) message] The system which generated this result transmitted reference range : 0.0 - 10.0 /100 WBCs. The reference range was not used to interpret this result as normal/abnormal . NRBC x10^3 (test code <0.01 See_Comment [Auto mated = 1374120549) message] The system which generated this result transmitted reference range : 10*3/?L. The reference range was not used to interpret this result as normal/abnormal . GRAN MAT (NEUT) % 86.0 % (test code = 770-8) IMM GRAN % (test code 0.90 % = 7441014520) LYMPH % (test code = 2.9 % 736-9) MONO % (test code = 9.4 % 5905-5) EOS % (test code = 0.1 % 713-8) BASO % (test code = 0.7 % 706-2) GRAN MAT x10^3(ANC) 14.06 10*3/uL 1.88-7.09 H (test code = 2521069148) IMM GRAN x10^3 (test 0.14 10*3/uL 0.00-0.06 H code = 1840776945) LYMPH x10^3 (test 0.47 10*3/uL 1.32-3.29 L code = 731-0) MONO x10^3 (test code 1.54 10*3/uL 0.33-0.92 H = 742-7) EOS x10^3 (test code <0.03 0.03-0.39 L = 711-2) BASO x10^3 (test code 0.11 10*3/uL 0.01-0.07 H = 704-7) BANDS (test code = MARKED INCREASED A 6813648204) DOHLE BODIES (test Present A code = 7792-5) REACT LYMPHS (test Rare code = 7195208735) TOXIC CHANGES (test Present A code = 803-7) Lab Interpretation Abnormal (test code = 60302-8) [id number] 14:58:50 Test Item Value Reference Interpretation Comments Range TROPONIN I (test 0.014 ng/mL See_Comment [Automated code = 3012753886) message] The system which generated this result transmitted reference range : <=0.034. The reference range was not used to interpret this result as normal/abnormal . LINUS (test code = Reference (Normal) LINUS) Range (defined by the 99th percentile reference limit): <= 0.034 ng/mL Note: Cardiac troponin begins to rise 3-4 hours after the onset of ischemia. Repeat in 4-6 hours if the sample was drawn within 3-4 hours of the onset of the symptom and found normal. Diagnosis of myocardial injury is made with acute changes in cTn concentrations with at least one serial sample above the 99th percentile upper reference limit (URL), taken together with the patient's clinical presentation. Biotin has been reported to cause a negative bias, interpret results relative to patient's use of biotin. Lab Interpretation Normal (test code = 43631-3) [facility]ballN-TERMINAL [id number] 14:55:49 Test Item Value Reference Range Interpretation Comments NT-proBNP (test code 205 pg/mL See_Comment H [Autom ated = 4485136237) message] The system which generated this result transmitted reference range : <=125. The reference range was not used to interpret this result as normal/abnormal . LINUS (test code = LINUS) Biotin has been reported to cause a negative bias, interpret results relative to patient's use of biotin. Lab Interpretation Abnormal (test code = 27479-1) [facility]ballCOMP. METABOLIC PANEL (39483)2021-03-11 14:47:12 Test Item Value Reference Range Interpretation Comments NA (test code = 139 mmol/L 135-145 2404326664) K (test code = 4.8 mmol/L 3.5-5.0 6766326069) CL (test code = 104 mmol/L 98-108 3244690336) CO2 TOTAL (test code = 28 mmol/L 23-31 9181220554) AGAP (test code = 2-16 0122738139) BUN (test code = 4 mg/dL 7-23 L 5554012223) GLUCOSE (test code = 143 mg/dL 70-110 H 7156173515) CREATININE (test code = 0.32 mg/dL 0.50-1.04 L 4580458524) TOTAL BILI (test code = 0.9 mg/dL 0.1-1.6 6433512711) CALCIUM (test code = 9.6 mg/dL 8.6-10.6 3385715671) T PROTEIN (test code = 7.4 g/dL 6.3-8.2 3283008522) ALBUMIN (test code = 4.2 g/dL 3.5-5.0 6225557361) ALK PHOS (test code = 93 U/L 34-122 2016384496) ALTv (test code = 15 U/L 5-35 1742-6) AST(SGOT) (test code = 28 U/L 13-40 8666393530) eGFR (test code = mL/min/1.73m2 9916752270) LINUS (test code = LINUS) Association of Glomerular Filtration Rate (GFR) and Staging of Kidney Disease* + --+ --+ ------+| GFR (mL/min/1.73 m2) ?| With Kidney Damage ?| ?Without Kidney Damage+ --------+ --------+ +| ?>90 ?| ?Stage one ?| ? Normal ?+ ---+ ---+ -------+| ?60-89 ?| ?Stage two ?| ? Decreased GFR ? + --+ --+ ------+| ?30-59 ?| ?Stage three ?| ? Stage three ? + --+ --+ ------+| ?15-29 ?| ?Stage four ? | ? Stage four ?+ ---+ ---+ -------+| ?<15 (or dialysis) ? ?| ?Stage five ? | ? Stage five ?+ ---+ ---+ -------+ *Each stage assumes the associated GFR level has been in effect for at least three months. ?Stages 1 to 5, with or without kidney disease, indicate chronic kidney disease. Notes: Determination of stages one and two (with eGFR >59mL/min/1.73 m2) requires estimation of kidney damage for at least three months as defined by structural or functional abnormalities of the kidney, manifested by either:Pathological abnormalities or Markers of kidney damage (including abnormalities in the composition of the blood or urine or abnormalities in imaging tests). Lab Interpretation Abnormal (test code = 49785-2) [facility]ballXR FOOT 3+ VW [id number] 01:03:391. No evidence for acute fracture.2. Diffuse soft tissue swelling. [id number] End of Report ORDERING PHYSICIAN: KANE WYATT HISTORY: ?Pain status post trauma TECHNIQUE: Right foot x-ray, ?3 views COMPARISON EXAMINATIONS: none available FINDINGS: The bones demonstrate no evidence for acute fracture ordislocation. ?Diffuse soft tissue swelling is noted. No abnormalcalcifications are noted. Joint spaces appear preserved. [place], Radiant Results Inft User - 12/11/2020 8:04 PM CDT ORDERING PHYSICIAN: KANE WYATTHISTORY: Pain status post traumaTECHNIQUE: Right foot x-ray, 3 viewsCOMPARISON EXAMINATIONS: none availableFINDINGS: The bones demonstrate no evidence for acute fracture ordislocation. Diffuse soft tissue swelling is noted. No abnormalcalcifications are noted. Joint spaces appear preserved. IMPRESSION1. No evidence for acute fracture.2. Diffuse soft tissue swelling. [id number] of Report [facility] ANKLE 3+ VW [id number] 01:00:471. No evidence for acute fracture.2. Soft tissue swelling is noted diffusely. [id number] End of Report ORDERING PHYSICIAN: KANE WYATT HISTORY: ?Pain status post trauma TECHNIQUE: Right ankle x-ray, ?3 views COMPARISON EXAMINATIONS: none available FINDINGS: The bones demonstrate no evidence for acute fracture ordislocation. ?Diffuse soft tissue swelling is noted. Joint effusioninvolving the ankles is also present. Minimal calcaneal spurring is noted.Joint spaces appear preserved. [facility], Radiant Results Inft User - 12/11/2020 8:01 PM CDTFormattingof this note might be different from the original.ORDERING PHYSICIAN: KANE RODRIGUEZTORY: Pain sta tus post traumaTECHNIQUE: Right ankle x-ray, 3 viewsCOMPARISON EXAMINATIONS: none availableFINDINGS:The bones demonstrate no evidence for acute fracture ordislocation. Diffuse soft tissue swelling is noted. Joint effusioninvolving the ankles is also present. Minimal calcaneal spurring is noted.Joint spaces appear preserved. IMPRESSION1. No evidence for acute fracture.2. Soft tissue swelling is noteddiffusely. [id number] of Report [facility] TIBIA FIBULA 2 VW [id number] 00:57:311. No evidence for acute fracture.2. Suggestion of soft tissue swelling as above. [id number] End of Report ORDERING PHYSICIAN: KANE WYATT HISTORY:?Pain status post trauma TECHNIQUE: Right tibia and fibula x-ray, ?2 views COMPARISON EXAMINATIONS: none available FINDINGS: The bones demonstrate no evidence for acute fracture ordislocation. ?There is mild but extensive suggestion of soft tissueswelling. No abnormal calcifications are noted. Joint spaces appearpreserved. [facility], Radiant Results Inft User - 12/11/2020 7:58 PM CDT ORDERING PHYSICIAN: KANE WYATTHISTORY: Pain status post traumaTECHNIQUE: Right tibia and fibula x-ray, 2 viewsCOMPARISON EXAMINATIONS: none availableFINDINGS: The bones demonstrate no evidence for acute fracture ordislocation. There is mild but extensive suggestion of soft tissueswelling. No abnormal calcifications are noted. Joint spaces appearpreserved. IMPRESSION1. No evidence for acute fracture.2. Suggestion of soft tissue swelling as above. [id number] of Report [facility]"
[2022-03-26] MEDS ORDERED: METHYLPREDNISOLONE 125 MG INJ ONE (19:44)
[2022-03-26] MEDS ORDERED: LEVALBUTEROL 1.25 MG/3 ML NEB ONE (19:44)
[2022-03-26] MEDS ORDERED: Levofloxacin500mg IV 500 MG/100 ML BAG IV ONE (19:45)
[2022-03-26] MEDS ORDERED: IPRATROPIUM BROM 0.5MG/2.5ML ONE (19:45)
[2022-03-26] MEDS ORDERED: FAMOTIDINE 20 MG/2 ML VIAL IV ONE (19:46)
[2022-03-26] MEDS ORDERED: NA CHLORIDE 0.9% 1,000 ML ONE (19:46)
--- NOTE | 2022-03-26 20:07 | RAD REPORT ---
EXAM DESCRIPTION: RAD - Chest Single View - 03/26/2022 7:44 pm CLINICAL HISTORY: COUGH Chest pain. COMPARISON: No comparisons FINDINGS: Portable technique limits examination quality. Interstitial markings are mildly prominent. The heart is normal in size. No displaced fractures. IMPRESSION: Mildly prominent interstitial markings likely representing viral infection.
[2022-03-26 20:34] LABS: Absolute Lymphocytes (CBC) 0.7 K/uL (0.7-4.9); Hematocrit 42.6 % (36.0-45.0); Lymphocytes % 15.2 % (15.3-44.8); MCV 91.1 fL (80-100); MPV 7.4 fL (7.6-11.3); RBC Red Blood Cell Count 4.67 M/uL (3.86-4.86)
[2022-03-26 20:37] LABS: Protime INR 0.98
--- NOTE | 2022-03-26 20:43 | ER ---
Nurse's Notes [facility] Name: Laura Leong Age: 56 yrs Sex: Female : 1965 Arrival Date: 03/26/2022 Time: 18:42 Bed 2 Private MD: Diagnosis: COPD/ Chronic obstructive pulmonary disease with (acute) exacerbation;Tobacco abuse counseling;Tobacco use;Hypoxemia Presentation: 03/26 18:42 Chief complaint: Patient states: cough, congestion, increasing SOB since Tuesday. PCP kb3 placed pt on azithromycin and prednisone on Tuesday but pt reports she is not improving. Pt is O2 dependent at home and arrived via POV without O2. 18:42 Coronavirus screen: Vaccine status: Patient reports receiving the 2nd dose of the covid kb3 vaccine. Client denies travel out of the [place] in the last 14 days. Ebola Screen: Patient negative for fever greater than or equal to 101.5 degrees Fahrenheit, and additional compatible Ebola Virus Disease symptoms Patient denies exposure to infectious person. Patient denies travel to an Ebola-affected area in the 21 days before illness onset. Risk Assessment: Do you want to hurt yourself or someone else? Patient reports no desire to harm self or others. Onset of symptoms was March 21, 2022. 18:42 Method Of Arrival: Ambulatory [facility] 18:42 Initial Sepsis Screen: Does the patient meet any 2 criteria? No. Patient's initial 3 sepsis screen is negative. Does the patient have a suspected source of infection? No. Patient's initial sepsis screen is negative. 18:42 Acuity: VIOLETA 2 kb3 Triage Assessment: 19:01 General: Appears in no apparent distress. Behavior is calm, cooperative. Pain: kb3 Complains of pain in chest Pain does not radiate. Pain currently is 5 out of 10 on a pain scale. Respiratory: Reports shortness of breath cough that is productive, non-productive, pain with cough Airway is patent Respiratory effort is labored, Respiratory pattern is tachypnea Onset: The symptoms/episode began/occurred 5 days, the patient has mild shortness of breath. Historical: - Allergies: 19:01 No Known Allergies; kb3 - Home Meds: 19:01 diltiazem HCl 120 mg Oral CDER 1 cap once daily [Active]; Symbicort [Active]; kb3 - PMHx: 19:01 COPD; Hypertensive disorder; kb3 - PSHx: 19:01 None; kb3 - Immunization history:: Adult Immunizations up to date, Client reports receiving the 2nd dose of the Covid vaccine. - Social history:: Smoking status: Patient reports the use of cigarette tobacco products, smokes one pack cigarettes per day. Screenin:14 Abuse screen: Denies threats or abuse. Denies injuries from another. Nutritional ha1 screening: No deficits noted. Tuberculosis screening: No symptoms or risk factors identified. Fall Risk IV access (20 points). Ambulatory Aid- None/Bed Rest/Nurse Assist (0 pts). Gait- Weak (10 pts.). Mental Status- Oriented to own ability (0 pts). Total Garnica Fall Scale indicates Low Risk Score (25-44 pts). 23:13 [facility] ED Fall Risk Assessment (Adult). ha1 Assessment: 19:40 General: Appears uncomfortable, Behavior is calm, cooperative. Pain: Denies pain. ha1 Neuro: Level of Consciousness is awake, alert, obeys commands, Oriented to person, place, time, situation. Cardiovascular: Rhythm is sinus rhythm. Cardiovascular: Capillary refill < 3 seconds Patient's skin is warm and dry. Respiratory: Airway is patent Respiratory effort is even, unlabored, Respiratory pattern is regular, symmetrical, Breath sounds with crackles bilaterally. GI: No signs and/or symptoms were reported involving the gastrointestinal system. Abdomen is non-distended, obese. : No signs and/or symptoms were reported regarding the genitourinary system. EENT: No deficits noted. No signs and/or symptoms were reported regarding the EENT system. Derm: Skin is pink, warm \T\ dry. Musculoskeletal: Circulation, motion, and sensation intact. Range of motion: intact in all extremities. 20:40 Reassessment: Patient and/or family updated on plan of care and expected duration. Pain ha1 level reassessed. Patient is alert, oriented x 3, equal unlabored respirations, skin warm/dry/pink. Patient denies pain at this time. Vital Signs: 18:42 BP 172 / 85; Pulse 88; Resp 26; Temp 98; Pulse Ox 85% on R/A; Weight 55.79 kg; Height 5 kb3 ft. 1 in. (154.94 cm); Pain 5/10; 18:46 Pulse Ox 93% on 3 lpm NC; kb3 19:40 BP 170 / 85; Pulse 85; Resp 24 S; Pulse Ox 93% on 3 lpm NC; ha1 20:25 BP 162 / 79; Pulse 82; Resp 22; Pulse Ox 96% on 3 lpm NC; ha1 21:25 BP 164 / 89; Pulse 81; Resp 22 S; Pulse Ox 96% on 3 lpm NC; ha1 23:06 BP 164 / 95; Pulse 85; Resp 18 S; Pulse Ox 95% on 2 lpm NC; ha1 18:42 Body Mass Index 23.24 (55.79 kg, 154.94 cm) kb3 ED Course: 18:42 Patient arrived in ED. mr 19:01 Triage completed. kb3 19:01 Arm band placed on right wrist. Patient placed in an exam room, on a stretcher. kb3 19:11 Radha Murrell, RN is Primary Nurse. ha1 19:20 Patient has correct armband on for positive identification. Placed in gown. Bed in low ha1 position. Call light in reach. Side rails up X 1. 19:24 Alonso Willis MD is Attending Physician. [facility] 19:46 XRAY Chest (1 view) In Process Unspecified. EDMS 20:39 Gabby Iniguez MD is Hospitalizing Provider. gissel 20:43 Basic Metabolic Panel Sent. ha1 20:43 LFT's Sent. ha1 20:43 Magnesium Sent. ha1 20:43 NT PRO-BNP Sent. ha1 20:43 Troponin HS Sent. ha1 23:12 No provider procedures requiring assistance completed. Patient admitted, IV remains in ha1 place. Administered Medications: 20:00 Drug: SOLU-Medrol (methylPrednisoLONE) 125 mg Route: IVP; Site: left forearm; ha1 20:30 Drug: NS 0.9% 1000 ml Route: IV; Rate: 125 ml/hr; Site: left forearm; ha1 20:30 Drug: LevaQUIN (levofloxacin) 500 mg Volume: 100 ml; Route: IVPB; Infused Over: 60 ha1 mins; Site: left forearm; 20:41 Drug: Xopenex (levalbuterol) 3.75 mg Route: Inhalation; ha1 20:41 Drug: AtroVENT (ipratropium) Aerosol 0.5 mg Route: Inhalation; 1 20:41 Drug: Pepcid (famotidine) 20 mg Route: IVP; Site: left forearm; ha1 :41 Drug: Magnesium Sulfate 1 grams Route: IVPB; Infused Over: 1 hrs; Site: left forearm; [facility] Medication: 23:13 VIS not applicable for this client. 1 Outcome: 20:43 Decision to Hospitalize by Provider. [facility] 23:12 Admitted to Med/surg accompanied by tech, via wheelchair, with oxygen, Report called to esteban Negron RN 23:12 Condition: stable 23:14 Patient left the ED. [facility] Signatures: Dispatcher [employer] EDAlonso Carlisle MD MD cha Rivera, Sari mr Radha Murrell RN RN Tamra Nolen RN RN kb3 Corrections: (The following items were deleted from the chart) 20:47 20:43 General: Appears uncomfortable, Behavior is calm, cooperative, [place] [address] 20:47 20:43 Pain: Denies pain. [place] [address] :47 20:43 Neuro: Level of Consciousness is awake, alert, obeys commands, Oriented to 1 person, place, time, situation, [facility] :47 20:43 Cardiovascular: Capillary refill < 3 seconds Patient's skin is warm and dry. 1 1 20:47 20:43 Respiratory: Airway is patent Respiratory effort is even, unlabored, Respiratory [facility] pattern is regular, symmetrical, Breath sounds with crackles bilaterally. ha1 :47 20:43 GI: No signs and/or symptoms were reported involving the gastrointestinal system. ha1 Abdomen is non-distended, obese, ha1 :47 20:43 : No signs and/or symptoms were reported regarding the genitourinary system. 11 :47 20:43 EENT: No deficits noted. No signs and/or symptoms were reported regarding the [facility] EENT system. 1 :47 20:43 Derm: Skin is pink, warm \T\ dry. 1 1 20:47 20:43 Musculoskeletal: Circulation, motion, and sensation intact. Range of motion: [facility] intact in all extremities, [facility] :47 20:43 Cardiovascular: Rhythm is sinus rhythm [place] [id number]
--- NOTE | 2022-03-26 20:43 | EDPHYS ---
Physician Documentation [facility] Name: Laura Leong Age: 56 yrs Sex: Female : 1965 Arrival Date: 03/26/2022 Time: 18:42 Bed 2 Private MD: Alonso Power HPI: 03/26 20:30 This 56 yrs old Female presents to ER via Ambulatory with complaints of gissel Breathing Difficulty. 20:30 The patient has shortness of breath at rest, with light activity. Onset: The gissel symptoms/episode began/occurred 4 day(s) ago. Duration: The symptoms are continuous, and are steadily getting worse. The patient's shortness of breath is aggravated by coughing, exertion, light activity, walking. Associated signs and symptoms: The patient has no apparent associated signs or symptoms. The patient has experienced similar episodes in the past, multiple times. Historical: - Allergies: 19:01 No Known Allergies; kb3 - Home Meds: 19:01 diltiazem HCl 120 mg Oral CDER 1 cap once daily [Active]; Symbicort [Active]; kb3 - PMHx: 19:01 COPD; Hypertensive disorder; kb3 - PSHx: 19:01 None; kb3 - Immunization history:: Adult Immunizations up to date, Client reports receiving the 2nd dose of the Covid vaccine. - Social history:: Smoking status: Patient reports the use of cigarette tobacco products, smokes one pack cigarettes per day. ROS: 20:33 Constitutional: Negative for fever, chills, and weight loss, Eyes: Negative for injury, gissel pain, redness, and discharge, ENT: Negative for injury, pain, and discharge, Neck: Negative for injury, pain, and swelling, Cardiovascular: Negative for chest pain, palpitations, and edema, Abdomen/GI: Negative for abdominal pain, nausea, vomiting, diarrhea, and constipation, Back: Negative for injury and pain, : Negative for injury, bleeding, discharge, and swelling, MS/Extremity: Negative for injury and deformity, Skin: Negative for injury, rash, and discoloration, Neuro: Negative for headache, weakness, numbness, tingling, and seizure, Psych: Negative for depression, anxiety, suicide ideation, homicidal ideation, and hallucinations, Allergy/Immunology: Negative for hives, rash, and allergies, Endocrine: Negative for neck swelling, polydipsia, polyuria, polyphagia, and marked weight changes, Hematologic/Lymphatic: Negative for swollen nodes, abnormal bleeding, and unusual bruising. 20:33 Respiratory: Positive for cough, "sounds productive", dyspnea on exertion, shortness of breath, at rest. wheezing, inspiratory, expiratory. Exam: 20:33 Constitutional: This is a well developed, well nourished patient who is awake, alert, gissel and in no acute distress. Head/Face: Normocephalic, atraumatic. Eyes: Pupils equal round and reactive to light, extra-ocular motions intact. Lids and lashes normal. Conjunctiva and sclera are non-icteric and not injected. Cornea within normal limits. Periorbital areas with no swelling, redness, or edema. ENT: Nares patent. No nasal discharge, no septal abnormalities noted. Tympanic membranes are normal and external auditory canals are clear. Oropharynx with no redness, swelling, or masses, exudates, or evidence of obstruction, uvula midline. Mucous membranes moist. Neck: Trachea midline, no thyromegaly or masses palpated, and no cervical lymphadenopathy. Supple, full range of motion without nuchal rigidity, or vertebral point tenderness. No Meningismus. Chest/axilla: Normal chest wall appearance and motion. Nontender with no deformity. No lesions are appreciated. Cardiovascular: Regular rate and rhythm with a normal S1 and S2. No gallops, murmurs, or rubs. Normal PMI, no JVD. No pulse deficits. Abdomen/GI: Soft, non-tender, with normal bowel sounds. No distension or tympany. No guarding or rebound. No evidence of tenderness throughout. Back: No spinal tenderness. No costovertebral tenderness. Full range of motion. Female : Normal external genitalia. Skin: Warm, dry with normal turgor. Normal color with no rashes, no lesions, and no evidence of cellulitis. MS/ Extremity: Pulses equal, no cyanosis. Neurovascular intact. Full, normal range of motion. Neuro: Awake and alert, GCS 15, oriented to person, place, time, and situation. Cranial nerves II-XII grossly intact. Motor strength 5/5 in all extremities. Sensory grossly intact. Cerebellar exam normal. Normal gait. Psych: Awake, alert, with orientation to person, place and time. Behavior, mood, and affect are within normal limits. 20:33 ECG was reviewed by the Attending Physician. 20:33 Respiratory: mild respiratory distress is noted, moderate respiratory distress is noted, Respirations: labored breathing, that is mild, Breath sounds: bronchial sounds, that are mild, are scattered, decreased breath sounds, that are moderate, are located in both bases, rhonchi, that are mild, are scattered, stridor, is not appreciated, wheezing: inspiratory expiratory that is moderate, is heard diffusely. Vital Signs: 18:42 BP 172 / 85; Pulse 88; Resp 26; Temp 98; Pulse Ox 85% on R/A; Weight 55.79 kg; Height 5 kb3 ft. 1 in. (154.94 cm); Pain 5/10; 18:46 Pulse Ox 93% on 3 lpm NC; kb3 19:40 BP 170 / 85; Pulse 85; Resp 24 S; Pulse Ox 93% on 3 lpm NC; ha1 20:25 BP 162 / 79; Pulse 82; Resp 22; Pulse Ox 96% on 3 lpm NC; ha1 21:25 BP 164 / 89; Pulse 81; Resp 22 S; Pulse Ox 96% on 3 lpm NC; ha1 23:06 BP 164 / 95; Pulse 85; Resp 18 S; Pulse Ox 95% on 2 lpm NC; ha1 18:42 Body Mass Index 23.24 (55.79 kg, 154.94 cm) kb3 MDM: 19:24 Patient medically screened. gissel 20:37 Differential diagnosis: Bronchitis CHF exacerbation, Chronic Obstructive Pulmonary gissel Disease obstructed airway, bronchitis, flu, Myocardial Infarction pneumonia, Pneumothorax pulmonary edema, reactive airway disease, Unstable Angina. Antibiotic administration: Levaquin given. The patient's Wells Deep Vein Thrombosis Score was calculated as follows: Total Score: 0-2 Pts- Low Risk. Differential Diagnosis: Obstructed Airway Bronchitis Influenza Upper Respiratory Infection Asthma Exacerbation Viral Syndrome Pneumonia. The patient's pulmonary embolism risk score was calculated as follows: Total Score: 0-2 points. This patient was found to be at low risk for a pulmonary embolism by using the Well's assessment criteria. Immunization status: Influenza vaccine:. Data reviewed: vital signs, nurses notes, lab test result(s), EKG, radiologic studies, plain films. Data interpreted: night monitor: rate is 88 beats/min, rhythm is regular, Pulse oximetry: on room air is 93 %. Test interpretation: by ED physician or midlevel provider: ECG, plain radiologic studies. Counseling: I had a detailed discussion with the patient and/or guardian regarding: the historical points, exam findings, and any diagnostic results supporting the discharge/admit diagnosis, lab results, radiology results, the need for further work-up and treatment in the hospital. 03/26 19:27 Order name: Basic Metabolic Panel; Complete Time: 21:12 [facility] 03/26 19:27 Order name: CBC with Diff; Complete Time: 20:43 [facility] 03/26 19:27 Order name: LFT's; Complete Time: 21:12 [facility] 03/26 19:27 Order name: Magnesium; Complete Time: 21:12 [facility] 03/26 19:27 Order name: NT PRO-BNP; Complete Time: 21:12 [facility] 03/26 19:27 Order name: PT-INR; Complete Time: 20:43 [facility] 03/26 19:27 Order name: Troponin HS; Complete Time: 21:12 [facility] 03/26 19:27 Order name: XRAY Chest (1 view); Complete Time: 20:43 [facility] 03/26 19:27 Order name: Blood Culture Adult (2) [facility] 03/26 19:27 Order name: COVID-19/FLU A+B; Complete Time: 21:12 [facility] 03/26 19:27 Order name: Lactate w/ 2H reflex if indic.; Complete Time: 21:12 [facility] 03/26 19:27 Order name: EKG; Complete Time: 19:28 [facility] 03/26 19:27 Order name: Cardiac monitoring; Complete Time: 20:32 [facility] 03/26 19:27 Order name: EKG - Nurse/Tech; Complete Time: 20:32 [facility] 03/26 19:27 Order name: IV Saline Lock; Complete Time: 20:42 [facility] 03/26 19:27 Order name: Labs collected and sent; Complete Time: 20:42 [facility] 03/26 19:27 Order name: O2 Per Protocol; Complete Time: 20:32 [facility] 03/26 19:27 Order name: O2 Sat Monitoring; Complete Time: 20:32 [facility] EC:33 Rate is 73 beats/min. Rhythm is regular. QRS [place] is Normal. [place] interval is normal. QRS gissel interval is normal. QT interval is normal. No Q waves. T waves are Normal. No ST changes noted. Clinical impression: NSR w/ Non-specific ST/T Changes and No evidence of ischemia. Administered Medications: 20:00 Drug: SOLU-Medrol (methylPrednisoLONE) 125 mg Route: IVP; Site: left forearm; ha1 20:30 Drug: NS 0.9% 1000 ml Route: IV; Rate: 125 ml/hr; Site: left forearm; ha1 20:30 Drug: LevaQUIN (levofloxacin) 500 mg Volume: 100 ml; Route: IVPB; Infused Over: 60 ha1 mins; Site: left forearm; 20:41 Drug: Xopenex (levalbuterol) 3.75 mg Route: Inhalation; ha1 20:41 Drug: AtroVENT (ipratropium) Aerosol 0.5 mg Route: Inhalation; ha1 20:41 Drug: Pepcid (famotidine) 20 mg Route: IVP; Site: left forearm; ha1 22:41 Drug: Magnesium Sulfate 1 grams Route: IVPB; Infused Over: 1 hrs; Site: left forearm; ha1 Disposition: 20:37 Critical Care:. gissel Disposition Summary: 03/26/22 20:43 Hospitalization Ordered Hospitalization Status: Inpatient Admission gissel Provider: Gabby Iniguez cha Location: Telemetry/MedSurg (Inpatient) gissel Condition: Fair gissel Problem: new gissel Symptoms: have improved gissel Bed/Room Type: Standard [facility] Room Assignment: [facility](03/26/22 21:58) mw Diagnosis - COPD/ Chronic obstructive pulmonary disease with (acute) exacerbation gissel - Tobacco abuse counseling gissel - Tobacco use gissel - Hypoxemia gissel Forms: - Medication Reconciliation Form gissel - SBAR form gissel Critical care time excluding procedures: 20:37 Critical care time: Bedside Care: 25 minutes, Consultation: 5 minutes. Total time: 30 gissel minutes Signatures: Dispatcher [employer] Lorraine Matthews RN RN mw Anderson, Corey, MD MD cha Ayala, Heidy RN RN ha1 Tamra Mann RN RN [id number] Lily Hollins PA-C PAFabiana [id number] Corrections: (The following items were deleted from the chart) 21:58 20:43 gissel mw
[2022-03-26 20:55] LABS: SARS-COV-2 RT PCR NEGATIVE (NEGATIVE)
[2022-03-26 20:56] LABS: Albumin 3.7 g/dL (3.4-5.0); Bilirubin Direct 0.1 mg/dL (0-0.2); Bilirubin Total 0.6 mg/dL (0.2-1.0); Magnesium 2.3 mg/dL (1.6-2.4); Potassium 3.7 mmol/L (3.5-5.1); Protein, Total 7.7 g/dL (6.4-8.2); Troponin High Sensitivity 4.6 pg/mL (<58.9)
--- NOTE | 2022-03-26 22:02 | P.HP ---
Certification for Inpatient Patient admitted to: Observation With expected LOS: <2 Midnights Patient will require the following post-hospital care: None Practitioner: I am a practitioner with admitting privileges, knowledge of patient current condition, hospital course, and medical plan of care. Services: Services provided to patient in accordance with Admission requirements found in Title 42 Section 412.3 of the Code of Federal Regulations Patient History Date of Service: 03/26/22 Primary Care Provider: Anil Reason for admission: Influenza, Hypoxia History of Present Illness: Patient is a 56-year-old female with past medical history of hypertension and COPD on home O2 who presented to the ED with complaints of shortness of breath, cough, congestion, and wheezing. She reports that she saw her PCP a few days ago who prescribed her a steroid and antibiotic but her symptoms have not improved. She was noted to be saturating 83% on room air upon arrival to the ED. Chest x-ray showed "Mildly prominent interstitial markings likely representing viral infection." She tested positive for influenza. No significant lab abnormalities. she has an increase in O2 requirement and is persistently tachypneic. She received IV fluids, breathing treatment, levaquin, and magnesium in the ED. Patient will be admitted for further management. Allergies No Known Allergies Allergy (Unverified 03/26/22 22:33) Home medications list reviewed: Yes - Past Medical/Surgical History Diabetic: No -: Hypertension -: COPD on home O2 -: C-Sections Psychosocial/ Personal History: Patient is unmarried. - Family History Family History: Reviewed- Non-Contributory - Social History Smoking Status: Current every day smoker Alcohol use: Yes CD- Drugs: No Caffeine use: Yes Place of Residence: Home Review of Systems General: Fever Respiratory: Cough, Shortness of Breath, Wheezing Physical Examination - Vital Signs Temperature: 98 F Blood Pressure: 162/79 Pulse: 82 Respirations: 22 Pulse Ox (%): 96 (3L NC) - Physical Exam General: Alert, In no apparent distress HEENT: Atraumatic, PERRLA, EOMI, Sclerae nonicteric Neck: Supple, 2+ carotid pulse no bruit Respiratory: Expiratory wheezes Cardiovascular: Regular rate/rhythm, Normal S1 S2 Gastrointestinal: Normal bowel sounds, No tenderness Musculoskeletal: No tenderness Integumentary: No rashes Neurological: Normal speech, Normal strength at 5/5 x4 extr, Normal tone, Normal affect - Studies Laboratory Data (last 24 hrs) 03/26/22 20:08: PT 10.8, INR 0.98 03/26/22 20:08: WBC 4.70, Hgb 14.9, Hct 42.6, Plt Count 274 03/26/22 20:08: Sodium 136, Potassium 3.7, BUN 9, Creatinine 0.40 L, Glucose 114 H, Magnesium 2.3, Total Bilirubin 0.6, AST 21, ALT 36, Alkaline Phosphatase 63 Assessment and Plan - Problems (Diagnosis) (1) Influenza A Current Visit: Yes Status: Acute (2) COPD (chronic obstructive pulmonary disease) Current Visit: Yes Status: Chronic Qualifiers: COPD type: unspecified COPD Qualified Code(s): J44.9 - Chronic obstructive pulmonary disease, unspecified (3) Acute and chronic respiratory failure with hypoxia Current Visit: Yes Status: Acute (4) Hypertension Current Visit: Yes Status: Chronic Qualifiers: Hypertension type: primary hypertension Qualified Code(s): I10 - Essential (primary) hypertension - Plan Patient is admitted for observation for management of hypoxia secondary to influenza. Treat with tamiflu, incentive spirometry, IV fluids, supplemental O2. Supportive measures with as needed guaifenesin, antitussives, and breathing treatments. Tobacco cessation counseling. Monitor and replete electrolytes per protocol. Reconcile continue home medications. Lovenox for VTE prophylaxis. Full code. Discharge Plan: Home Plan to discharge in: 24 Hours - Advance Directives Does patient have a Living Will: No Does patient have a Durable POA for Healthcare: No - Code Status/Comfort Care Code Status Assessed: Yes Code Status: Full Code Physician Review: Patient Assessed, Agree with Above Assessment and Plan Critical Care: No Time Spent Managing Pts Care (In Minutes): 50
[2022-03-26] MEDS ORDERED: MAGNESIUM SULFATE 1 gm IVPB 1 GM/100 ML BAG IV ONE (22:38)
[2022-03-26] MEDS ORDERED: ALBUTEROL 2.5 MG/3 ML NEB SOL NEB PRN (22:39)
[2022-03-26] MEDS ORDERED: GUAIFENESIN 600 MG SA TAB PO PRN (22:39)
[2022-03-26] MEDS ORDERED: HYDROCODONE/CHLORPHEN 5 ML/OSYR PO PRN (22:39)
[2022-03-26] MEDS ORDERED: ONDANSETRON 4 MG/2 ML VIAL IV PRN (22:39)
[2022-03-26] MEDS ORDERED: ACETAMINOPHEN 500 MG TAB PO PRN (22:39)
[2022-03-27] MEDS: NA CHLORIDE 0.9% 1,000 ML IV SCH ×3 (00:20→20:55)
[2022-03-27] MEDS: OSELTAMIVIR 75 MG CAP PO SCH ×3 (00:20→20:54)
[2022-03-27 04:17] LABS: Absolute Lymphocytes (CBC) 0.4 K/uL (0.7-4.9); Hematocrit 40.2 % (36.0-45.0); Lymphocytes % 12.5 % (15.3-44.8); MCV 91.6 fL (80-100); MPV 7.6 fL (7.6-11.3); RBC Red Blood Cell Count 4.38 M/uL (3.86-4.86)
[2022-03-27 04:45] LABS: Magnesium 2.6 mg/dL (1.6-2.4); Phosphorus 3.2 mg/dL (2.5-4.9); Potassium 3.9 mmol/L (3.5-5.1); Thyroid Stimulating Hormone 0.228 uIU/mL (0.358-3.740)
[2022-03-27] MEDS ORDERED: POTASSIUM CL SA 10 MEQ TAB PO ONE (09:00)
[2022-03-27] MEDS: DILTIAZEM HCL 120 MG SR CAP PO SCH (09:12)
[2022-03-27] MEDS: ENOXAPARIN 40 MG/0.4 ML SQ SCH (09:13)
[2022-03-27] MEDS ORDERED: HOME MED 1 EA UNK (Budesonide/Formoterol Fumarate [Symbicort 160-4.5 Mcg Inhaler] 10.2 GM IH PRN (12:16)
[2022-03-27] MEDS: HYDRALAZINE HCL 20 MG/ML VIAL IV PRN ×2 (13:09→20:54)
--- NOTE | 2022-03-27 13:42 | P.PN ---
Subjective Date of Service: 03/27/22 Primary Care Provider: Anil Chief Complaint: Influenza, Hypoxia Patient states she feels better. She is maintained on 3 L oxygen by nasal cannula. She is on home oxygen therapy for chronic respiratory failure. She is ambulating. Physical Examination - Vital Signs Temperature: 97.4 F Blood Pressure: 190/90 Pulse: 68 Respirations: 18 Pulse Ox (%): 98 - Studies Laboratory Data (last 24 hrs) 03/26/22 20:08: PT 10.8, INR 0.98 03/26/22 20:08: WBC 4.70, Hgb 14.9, Hct 42.6, Plt Count 274 03/26/22 20:08: Sodium 136, Potassium 3.7, BUN 9, Creatinine 0.40 L, Glucose 114 H, Magnesium 2.3, Total Bilirubin 0.6, AST 21, ALT 36, Alkaline Phosphatase 63 Assessment And Plan - Current Problems (Diagnosis) (1) Chronic respiratory failure with hypoxia Current Visit: Yes Status: Acute (2) COPD exacerbation Current Visit: Yes Status: Acute (3) Influenza A Current Visit: Yes Status: Acute (4) Hypertension Current Visit: Yes Status: Chronic Qualifiers: Hypertension type: primary hypertension Qualified Code(s): I10 - Essential (primary) hypertension - Plan Physical Exam General: Alert, In no apparent distress Neck: Supple, JVD is not distended. Respiratory: Mild scattered wheezes. Cardiovascular: Regular rate/rhythm, Normal S1 S2 Gastrointestinal: Normal bowel sounds, No tenderness Integumentary: No rashes Neurological: No focal motor deficit. Plan: Continue Tamiflu. Treat for COPD exacerbation with IV steroid, scheduled bronchodilators. Oxygen therapy as needed. Increase activity as tolerated. BP is severely elevated. Continue oral Cardizem Added hydralazine for BP spikes. Physician Review: Patient Assessed, Agree with Above Assessment and Plan
[2022-03-27] MEDS: ALBUTEROL 2.5 MG/3 ML NEB SOL NEB PRN ×2 (14:10→20:10)
[2022-03-27] MEDS: IPRATROPIUM BROM 0.5MG/2.5ML NEB PRN ×2 (14:10→20:10)
[2022-03-27] MEDS: METHYLPREDNISOLONE 40 MG INJ IV SCH (15:58)
[2022-03-27 23:38] VITALS: BMI 23.0
[2022-03-28] MEDS: METHYLPREDNISOLONE 40 MG INJ IV SCH ×2 (02:26→07:50)
[2022-03-28] MEDS: IPRATROPIUM BROM 0.5MG/2.5ML NEB PRN (05:00)
[2022-03-28] MEDS: ALBUTEROL 2.5 MG/3 ML NEB SOL NEB PRN (05:00)
[2022-03-28 05:42] LABS: Magnesium 2.3 mg/dL (1.6-2.4); Phosphorus 2.9 mg/dL (2.5-4.9); Potassium 3.9 mmol/L (3.5-5.1)
[2022-03-28] MEDS: ENOXAPARIN 40 MG/0.4 ML SQ SCH (07:50)
[2022-03-28] MEDS: OSELTAMIVIR 75 MG CAP PO SCH (07:50)
[2022-03-28] MEDS: DILTIAZEM HCL 120 MG SR CAP PO SCH (07:54)
[2022-03-28] MEDS ORDERED: POTASSIUM CL SA 10 MEQ TAB PO SCH (09:00)
--- NOTE | 2022-03-28 10:06 | P.DS ---
Admission Date: 03/27/22 Discharge Date: 03/28/22 Primary Care Provider: Anil Disposition: ROUTINE DISCHARGE Discharge Condition: FAIR Reason for Admission: Influenza, Hypoxia - Problems (1) Chronic respiratory failure with hypoxia Current Visit: Yes Status: Acute (2) COPD exacerbation Current Visit: Yes Status: Acute (3) Influenza A Current Visit: Yes Status: Acute (4) Hypertension Current Visit: Yes Status: Chronic Qualifiers: Hypertension type: primary hypertension Qualified Code(s): I10 - Essential (primary) hypertension Brief History of Present Illness: Patient is a 56-year-old female with past medical history of hypertension and COPD on home O2 who presented to the ED with complaints of shortness of breath, cough, congestion, and wheezing. She reports that she saw her PCP a few days prior who prescribed her a steroid and antibiotic but her symptoms did not improved. She was noted to be saturating 83% on room air upon arrival to the ED. Chest x-ray showed "Mildly prominent interstitial markings likely representing viral infection." She tested positive for influenza. No significant lab abnormalities. Patient is on 3 L of oxygen by nasal cannula at baseline. She was on 3 L in the emergency department by she was persistently tachypneic. She received IV fluids, breathing treatment, levaquin, and magnesium in the ED. Patient was admitted for further management. Hospital Course: Patient admitted to the medical floor and treated for influenza with Tamiflu, COPD exacerbation with scheduled bronchodilators and steroids. Patient was maintained on 3 L oxygen by nasal cannula. Patient respiratory condition improved with treatment. Patient blood pressure is uncontrolled on her home dose diltiazem. He is prescribed hydrochlorothiazide to take with the diltiazem for better blood pressure control. Patient also prescribed a tapering dose of oral prednisone, Levaquin and Tamiflu. Vital Signs/Physical Exam: Temp Pulse Resp BP Pulse Ox 98.3 F 81 19 169/98 H 92 03/28/22 08:00 03/28/22 08:00 03/28/22 08:00 03/28/22 08:00 03/28/22 08:00 General: Alert, In no apparent distress, Oriented x3 Neck: JVD not distended Respiratory: Other (No wheezes or crackles.) Cardiovascular: Regular rate/rhythm, Normal S1 S2 Gastrointestinal: Soft and benign, Non-distended Musculoskeletal: No swelling Integumentary: No cyanosis Neurological: Normal strength at 5/5 x4 extr Laboratory Data at Discharge: WBC 3.40 K/uL (4.3-10.9) L 03/27/22 03:37 Hgb 13.7 g/dL (12.0-15.0) D 03/27/22 03:37 Hct 40.2 % (36.0-45.0) 03/27/22 03:37 Plt Count 257 K/uL (152-406) 03/27/22 03:37 PT 10.8 SECONDS (9.5-12.5) 03/26/22 20:08 INR 0.98 03/26/22 20:08 Sodium 138 mmol/L (136-145) 03/28/22 04:50 Potassium 3.9 mmol/L (3.5-5.1) 03/28/22 04:50 BUN 9 mg/dL (7-18) 03/28/22 04:50 Creatinine 0.37 mg/dL (0.55-1.02) L 03/28/22 04:50 Glucose 122 mg/dL (74-106) H 03/28/22 04:50 Phosphorus 2.9 mg/dL (2.5-4.9) 03/28/22 04:50 Magnesium 2.3 mg/dL (1.6-2.4) 03/28/22 04:50 Total Bilirubin 0.6 mg/dL (0.2-1.0) 03/26/22 20:08 AST 21 U/L (15-37) 03/26/22 20:08 ALT 36 U/L (13-56) 03/26/22 20:08 Alkaline Phosphatase 63 U/L (45-117) 03/26/22 20:08 Triglycerides 136 mg/dL (<150) 03/27/22 03:37 Cholesterol 250 mg/dL (<200) H 03/27/22 03:37 HDL Cholesterol 59 mg/dL (40-60) 03/27/22 03:37 Cholesterol/HDL Ratio 4.24 03/27/22 03:37 Home Medications: Albuterol Inhaler [Ventolin Inhaler*] 2 puff IH Q6H PRN 03/26/22 Albuterol Neb [Proventil 0.083% Neb Soln] 2.5 mg IH DAILYPRN PRN 03/26/22 Budesonide/Formoterol Fumarate [Symbicort 160-4.5 Mcg Inhaler] 2 puff IH PRN PRN 03/26/22 Diltiazem Cd [Cardizem Cd*] 120 mg PO DAILY 03/26/22 Guaifenesin [Mucinex] 600 mg PO BID #20 tab 03/28/22 Ipratropium Neb [Atrovent*] 0.5 mg NEB [id number] PRN #120 amp 03/28/22 Oseltamivir [Tamiflu*] 75 mg PO BID #8 cap 03/28/22 hydroCHLOROthiazide [Hydrochlorothiazide] 25 mg PO DAILY #30 tab 03/28/22 levoFLOXacin [Levaquin] 750 mg PO DAILY #5 tab 03/28/22 predniSONE [Deltasone*] 10 mg PO DAILY #30 tab 03/28/22 New Medications: Ipratropium Neb [Atrovent*] 0.5 mg NEB [id number] PRN #120 amp PRN Reason: Shortness Of Breath predniSONE [Deltasone*] 10 mg PO DAILY #30 tab hydroCHLOROthiazide [Hydrochlorothiazide] 25 mg PO DAILY #30 tab levoFLOXacin [Levaquin] 750 mg PO DAILY #5 tab Guaifenesin [Mucinex] 600 mg PO BID #20 tab Oseltamivir [Tamiflu*] 75 mg PO BID #8 cap Followup: Joseph Ma DO [Primary Care Provider] - 1-2 Weeks (call to schedule an appointment) Time spent managing pt's care (in minutes): 32
[2022-03-28] MEDS: HYDRALAZINE HCL 20 MG/ML VIAL IV PRN (11:23)
[2022-03-28 12:13] VITALS: TEMP 97.3
[2022-03-28 12:19] VITALS: O2SAT 94
[2022-03-28 13:11] VITALS: BP 161/80
--- NOTE | 2022-03-28 15:52 | EKG ---
Test Date: 2022-03-26 Test Time: 19:42:56 Button Breaker Operator: MEASUREMENT RESULTS: Intervals: Rate: 73 PA: 140 QRSD: 70 QT: 412 QTc: 453 Miller: P: 69 PA: 140 QRS: 76 T: 78 INTERPRETIVE STATEMENTS: Normal sinus rhythm with sinus arrhythmia Early repolarization Normal ECG No previous ECG available for comparison Electronically Signed On 03-28-22 15:51:45 PROPERTY FIELD INSPECTOR by Kwesi Morel
== END 2022-03-28 13:31 | disposition home or self-care (01) | DRG 193 ==
LOC: ER 18:38 → ERHOLD 21:54 → 4TH 22:36 → OBSVTOIN 03-27 18:16
PROVIDERS: ADMIT Internal Medicine; ATTEND Internal Medicine
DX: J10.1 Influenza due to other identified influenza virus with other respiratory manifestations (principal); J96.21 Acute and chronic respiratory failure with hypoxia; J44.1 Chronic obstructive pulmonary disease with (acute) exacerbation; I10 Essential (primary) hypertension; F17.210 Nicotine dependence, cigarettes, uncomplicated; Z71.6 Tobacco abuse counseling; Z79.51 Long term (current) use of inhaled steroids; Z99.81 Dependence on supplemental oxygen; Z79.52 Long term (current) use of systemic steroids; Z79.899 Other long term (current) drug therapy; Z20.822 Contact with and (suspected) exposure to COVID-19
CPT/HCPCS: 0240U; 36415; 71045; 80048; 80061; 80076; 83605; 83735; 83880; 84100; 84443; 84484; 85025; 85610; 87040; 93005; 94010; 94640; 94760; 96374; 96375; 99285; G0378; J0360; J1650; J2405; J2920; J2930; J3475; J7030; J7613; J7614; J7644